=== PATIENT | female | born 1980 | race Caucasian/White ===

== ENCOUNTER 2017-04-10 11:10 | Emergency (ER) | payer OTHER ==
[~2017-04-10] VITALS: Ht 147.3 cm; Wt 55.0 kg
[~2017-04-10 11:10] MED LIST: PREN1CAP7 PO; ZOFR4TAB3 SL
[2017-04-10 11:12] VITALS: BP 134/84; PULSE 104; RESP 16; TEMP 98; O2SAT 100
[2017-04-10] MEDS ORDERED: ASPI81CH CHEW (11:44)
[2017-04-10] MEDS ORDERED: TUMS500C CHEW (11:44)
--- NOTE | 2017-04-10 11:48 | PD ---
HPI Chief Complaint: Hypertension Time Seen by Provider: 11:32 Travel History International Travel<30 days: No Contact w/Intl Traveler<30days: No Traveled to known affect area: No History of Present Illness HPI 36-year-old female here with complaint of possible hypertension. Patient is approximately 12 weeks based on first trimester ultrasound showing twin gestational . States that she had a history of preeclampsia with previous requiring induction at 36 weeks. Patient stated that she had some visual aura today with slight dancing lights within her vision. This was not associated with any headache. The vision resolved, and she has been seen normally without any difficulty since. The oral lasted for 2-3 minutes. During which time patient became anxious and checked her blood pressure at home and it was in the 140 systolic range prompting ER visit. She does not have history of hypertension outside of . She is been seeming by women's care now once, but has not yet seen an [facility] physician. PFSH Past Medical History Cardiovascular Problems: Yes (HTN DURING ) Diabetes: Yes (GESTATIONAL DIABETES) ?: LMP: 01/15/2017 Social History Tobacco Use: No Allergies-Medications (Allergen,Severity, Reaction): Coded Allergies: No Known Allergies (Unverified , 04/10/17) Reported Meds & Prescriptions Reported Meds & Active Scripts Active Zofran Odt (Ondansetron Odt) 4 Mg Tab 4 Mg SL Q8HR PRN Citranatal [place] ( W/O Vit A W/ Fe Fumar) 27-1-260 Mg Cap 1 Cap PO DAILY Reported Tums (Calcium Carbonate (Antacid)) 500 Mg Chew 500 Mg CHEW QID PRN Aspirin 81 Mg Chew 81 Mg CHEW DAILY Review of Systems Except as stated in HPI: all other systems reviewed are Neg Physical Exam Narrative GENERAL: Well-appearing female in no acute distress SKIN: Focused skin assessment warm/dry. HEAD: Atraumatic. Normocephalic. EYES: Pupils equal and round. No scleral icterus. No injection or drainage. ENT: No nasal bleeding or discharge. Mucous membranes pink and moist. NECK: Supple CARDIOVASCULAR: Regular rate and rhythm. RESPIRATORY: No accessory muscle use. GASTROINTESTINAL: Abdomen soft, non-tender, nondistended. MUSCULOSKELETAL: No obvious deformities. No edema. NEUROLOGICAL: Awake and alert. Motor grossly within normal limits. Normal speech. PSYCHIATRIC: Anxious Data Data Last Documented VS Vital Signs Date Time Temp Pulse Resp B/P Pulse Ox O2 Delivery O2 Flow Rate FiO2 04/10/17 11:12 98.0 104 16 134/84 100 MDM Medical Decision Making Medical Screen Exam Complete: Yes Emergency Medical Condition: Yes Medical Record Reviewed: Yes Differential Diagnosis 36-year-old female approximate 12 weeks here with complaint of 2-3 minutes of visual changes. Patient has had preeclampsia with previous pregnancies, but is certainly early for this despite her twin gestation. No doubt she is at high risk for preeclampsia and eclampsia given her history and should probably be followed by maternal medicine. She is asymptomatic at this time and her symptoms were not associated with any headache and I do not think any workup is warranted in the ER. Narrative Course Patient was referred to [facility] that she may have a referral from them to [facility] Diagnosis Primary Impression: , high-risk Qualified Code: O09.91 - , high-risk, first trimester Additional Impression: Visual changes Referrals: [facility] call for appointment Additional Instructions: Call [facility] for follow-up appointment. Med/Other Pt SpecificInfo: No Change to Meds Disposition: 01 DISCHARGE HOME Condition: Stable Dulce Chacon MD April 10, 2017 11:48
[2017-04-10 12:10] VITALS: BP 120/90; PULSE 80; RESP 18; O2SAT 98
[2017-04-18] MEDS ORDERED: ZOFR4TAB3 SL (14:30)
[2017-04-18] MEDS ORDERED: PREN1CAP7 PO (14:30)
== END 2017-04-10 12:10 | disposition home or self-care (01) ==
LOC: NEPD 11:10
DX: O09.91 Supervision of high risk pregnancy, unspecified, first trimester (principal); O99.89 Other specified diseases and conditions complicating pregnancy, childbirth and the puerperium; I10 Essential (primary) hypertension; H53.9 Unspecified visual disturbance
CPT/HCPCS: 99281

== ENCOUNTER → 2017-05-23 | Outpatient (CLI) | payer MEDICAID, OTHER ==
[~2017-05-23] MED LIST changes: +ASPI81CH CHEW; +TUMS500C CHEW; -ZOFR4TAB3 SL
== END ==
LOC: HPND 09:04 → EDUNIT# 10:15
PROVIDERS: ATTEND Obstetrics & Gynecology
DX: O09.522 Supervision of elderly multigravida, second trimester (principal); O30.032 Twin pregnancy, monochorionic/diamniotic, second trimester; Z3A.18 18 weeks gestation of pregnancy
CPT/HCPCS: 76811; 76812; 76817

== ENCOUNTER → 2017-06-06 | Outpatient (CLI) | payer MEDICAID ==
[~2017-06-06] MED LIST changes: +NITR1CAP36 PO; +PREN1CHW7 PO
== END ==
LOC: HPND 08:31
PROVIDERS: ATTEND Obstetrics & Gynecology
DX: O09.522 Supervision of elderly multigravida, second trimester (principal); O30.032 Twin pregnancy, monochorionic/diamniotic, second trimester; O35.1XX0 Maternal care for (suspected) chromosomal abnormality in fetus, not applicable or unspecified; O35.8XX0 Maternal care for other (suspected) fetal abnormality and damage, not applicable or unspecified
CPT/HCPCS: 76815; 76817

== ENCOUNTER 2017-08-02 12:10 | Observation (INO) | payer MEDICAID ==
[~2017-08-02 12:10] MED LIST changes: -NITR1CAP36 PO
[2017-08-02 13:32] LABS: AUTOMATED NEUTROPHIL # 11.2 TH/MM3 (1.8-7.7); BASOPHIL % 0.3 % (0.0-2.0); EOSINOPHIL # 0.2 TH/MM3 (0-0.4); EOSINOPHIL % 1.3 % (0.0-4.0); HEMATOCRIT 24.1 % (35.0-46.0); HEMO FLAGS DIFF FINAL; LYMPH % 15.8 % (9.0-44.0); LYMPHOCYTE # 2.3 TH/MM3 (1.0-4.8); MEAN CELL VOLUME 92.9 FL (80.0-100.0); MEAN CORPUSCULAR HEMOGLOBIN 32.5 PG (27.0-34.0); MONO % 7.1 % (0.0-8.0); NEUT % 75.5 % (16.0-70.0); PLATELET COUNT 316 TH/MM3 (150-450); RED BLOOD COUNT 2.59 MIL/MM3 (4.00-5.30); RED CELL DISTRIBUTION WIDTH 13.5 % (11.6-17.2); WHITE BLOOD COUNT 14.8 TH/MM3 (4.0-11.0)
[2017-08-02 13:57] LABS: ALT (GPT) 11 U/L (10-53); ANION GAP 9 MEQ/L (5-15); AST (GOT) 12 U/L (15-37); BICARBONATE 24.7 MEQ/L (21.0-32.0); BLOOD UREA NITROGEN 7 MG/DL (7-18); CHLORIDE 105 MEQ/L (98-107); GLOMERULAR FILTRATION RATE 226 ML/MIN (>89); POTASSIUM 3.3 MEQ/L (3.5-5.1); SODIUM (NA) 139 MEQ/L (136-145)
[2017-08-02 14:01] LABS: ALKALINE PHOSPHATASE 67 U/L (45-117); TOTAL BILIRUBIN ADULT 0.2 MG/DL (0.2-1.0); URIC ACID 4.3 MG/DL (2.6-6.0)
[2017-08-02 14:15] VITALS: BP 156/92; PULSE 104
[2017-08-02] MEDS ORDERED: SODIUM CHLORIDE 0.9% FLUSH 10 ML FLUSH IV FLUSH PRN (14:15)
[2017-08-02] MEDS ORDERED: ONDANSETRON ODT 4 MG TAB PO PRN (14:15)
--- NOTE | 2017-08-02 14:23 | PD ---
HPI Chief Complaint elevated BP Date Seen: Aug 02, 2017 Time Seen: 14:00 Travel History International Travel<30 Days: No Contact w/Intl Traveler<30Days: No History of Present Illness HPI 37 yo at 28/4 weeks gestation (twin ) presented to OB triage for elevated BP from OB diagnostics. BPP for twins done at OB diagnostic were 10/10 , CL= 52mm Pt stated elevated BP began 1 week ago. Pt endorses movements. Denies LOF, vaginal bleeding, and contractions. Pt also stated she had ARCE intermittently,none currently. Denies CP or SOB. Weeks Gestation: 28 Para: 2 : 3 History Past Medical History Medical History: Denies Significant Hx Obstetric History Obstetric History at 28/4 with twin . Prior pregnancies were . -First induced at 38 due to "old placenta", as per pt -Second induced at 36 wk due to increased BP. Pt stated she was placed on BP medication during that and eventually was induced because the medication were not controlling her BPs. Past Surgical History Surgical History: No Previous Surgery Family History Narrative Family History mother--with high BP Brother- heart attack at age 40 Social History Alcohol Use: No Tobacco Use: No Substance Abuse: No Allergies-Medications (Allergen,Severity, Reaction): Coded Allergies: No Known Allergies (Unverified , 07/26/17) Home Meds Active Scripts Vit W/ Ferric Phospha (Vitafol Gummies 3.33-0.333-34.8 mg) 1 Chw Chw, 3 TAB PO DAILY, #90 BOTTLE 11 Refills Prov:Georgia Charles 06/13/17 W/O Vit A W/ Fe Fumar (Citranatal [place]) 27-1-260 Mg Cap, 1 CAP PO DAILY for Nutritional Supplement, #30 CAP 11 Refills Prov:Georgia Charles 04/18/17 Reported Medications Calcium Carbonate (Antacid) (Tums) 500 Mg Chew, 500 MG CHEW QID Y for HEARTBURN , TAB 0 Refills 04/10/17 Aspirin (Aspirin) 81 Mg Chew, 81 MG CHEW DAILY, TAB 0 Refills 04/10/17 Review of Systems Except as stated in HPI: all other systems reviewed are Neg Physical Exam Narrative GENERAL: Well-nourished, well-developed patient. SKIN: Warm and dry. HEAD: Normocephalic and atraumatic. EYES: No scleral icterus. No injection or drainage. ENT: No nasal drainage noted. Mucous membranes pink. Airway patent. NECK: Supple, trachea midline. No JVD. CARDIOVASCULAR: Regular rate and rhythm without murmurs, gallops, or rubs. RESPIRATORY: Breath sounds equal bilaterally. No accessory muscle use. BREASTS: Bilateral exam showed no masses , no retractions, no nipple discharge. ABDOMEN/GI: Abdomen soft, non-tender, bowel sounds present, no rebound, no guarding Gravid to 28/4 weeks size Uterine Contractions: minimal only 1-2 contractions detected on monitor FHT's: Category: 1 Baseline:140 Reactive: positive Variability: moderate Decels: none EXTREMITIES: No cyanosis or edema. BACK: Nontender without obvious deformity. NEUROLOGICAL: Awake and alert. Motor and sensory grossly within normal limits. Five out of 5 muscle strength in all muscle groups. Normal speech. Data Data Vital Signs Reviewed: Yes Orders Orders Complete Blood Count With Diff (08/02/17 13:00) Comprehensive Metabolic Panel (08/02/17 13:00) Uric Acid (08/02/17 13:00) Place In Observation (08/02/17 ) Diet Regular Basic (08/02/17 Dinner) Vital Signs (Adult) [id number] AWAKE (08/02/17 14:15) Heart (08/02/17 14:15) Activity Bed Rest With Brp (08/02/17 14:15) Plkeopzh-Mlj-Cgcuj-Iron Prenat (Stuartna (08/03/17 09:00) Sodium Chloride 0.9% Flush (Ns Flush) (08/02/17 21:00) Sodium Chloride 0.9% Flush (Ns Flush) (08/02/17 14:15) Ondansetron Odt (Zofran Odt) (08/02/17 14:15) Labs Laboratory Tests Test 08/02/17 13:10 White Blood Count 14.8 Red Blood Count 2.59 Hemoglobin 8.4 Hematocrit 24.1 Mean Corpuscular Volume 92.9 Mean Corpuscular Hemoglobin 32.5 Mean Corpuscular Hemoglobin Concent 35.0 Red Cell Distribution Width 13.5 Platelet Count 316 Mean Platelet Volume 8.2 Neutrophils (%) (Auto) 75.5 Lymphocytes (%) (Auto) 15.8 Monocytes (%) (Auto) 7.1 Eosinophils (%) (Auto) 1.3 Basophils (%) (Auto) 0.3 Neutrophils # (Auto) 11.2 Lymphocytes # (Auto) 2.3 Monocytes # (Auto) 1.0 Eosinophils # (Auto) 0.2 Basophils # (Auto) 0.0 CBC Comment DIFF FINAL Differential Comment Blood Urea Nitrogen 7 Creatinine 0.33 Random Glucose 83 Total Protein 6.6 Albumin 2.3 Calcium Level 9.2 Uric Acid 4.3 Alkaline Phosphatase 67 Aspartate Amino Transf (AST/SGOT) 12 Alanine Aminotransferase (ALT/SGPT) 11 Total Bilirubin 0.2 Sodium Level 139 Potassium Level 3.3 Chloride Level 105 Carbon Dioxide Level 24.7 Anion Gap 9 Estimat Glomerular Filtration Rate 226 MDM Medical Record Reviewed: Yes Plan 37 yo at 28/4 weeks gestation with twin presented to OB triage from OB diagnostics due to elevated BPs. 1. IUP (twins) at 28/4 -continue with routine OB care -encourage oral hydration -normal transvaginal u/s done by Ob diagnostics today - Twins with 2VC--twin A suspected VSD, IUGR (07/18/17), twin B IUGR (07/18/17) 2. induced hypertension -Pt with elevated BPs, latest BP 156/92 -Urine dip stick found to have trace protein -CBC, CMP and uric acid labs WNL -Pt informed that admission to monitor BP and FHT and to obtain 24 urine protein is recommended. However, pt decided to leave AMA because she stated she has other children at home and other responsibilities. Pt informed of risk associated with leaving AMA. liboriow Dr. Valerio Diagnosis Diagnosis: Primary Impression: 28 weeks gestation of Additional Impression: induced hypertension Disposition: 07 AGAINST MEDICAL ADVICE Condition: Critical Richard Knox MD R1 Aug 02, 2017 14:23
[2017-08-02 14:30] VITALS: BP 159/98; PULSE 103
[2017-08-02] MEDS ORDERED: hydrALAZINE HCL 20 MG/ML VIAL IV PUSH PRN (14:30)
--- NOTE | 2017-08-02 14:51 | PD ---
History of Present Illness Date Seen: Aug 02, 2017 Time Seen: 14:30 History of Present Illness Patient is a 37-year-old white female with twin gestation at 28 weeks who was followed in the [facility] women clinic. She is following the high risk protocol by being seen by medicine on a routine basis. She had a level II ultrasound done today. On that ultrasound one baby has likely VSD, the other baby is growth restricted somewhat but both baby's 10 of 10 biophysical profiles normal ultrasound of the umbilical cord with normal end- diastolic flow. She has a history of -induced hypertension with her last . No history of hypertension prior to that and no hypertension between pregnancies. Her records with this showed no blood pressure issues until last week when she had 147/89 today and OB ultrasound here on OB ED blood pressure 150/90 persistently, shows trace protein in her urine, PIH lab within normal limits, patient also has history of gestational diabetes and her blood sugars 83 today., She denies any complaints or problems pains or other issues of both babies are active. heart rate tracings are reactive for both babies and no contractions seen on regular basis Impression--28 week twins with -induced hypertension [once again], ultrasound findings of obstetric issues with both, babies 1 with a VSD the other with some growth restriction Plan - we've recommended the patient that she be admitted the hospital for 24- hour urine collection for total protein, continued blood pressure monitoring, monitoring, patient that this time was not prepared for that information and does not want to stay she has to much to do too many babies to take care of and arrange for babysitting. We stressed the importance of watching her blood pressure and monitoring in the hospital but she is signing out AGAINST MEDICAL ADVICE. She may return tomorrow or the day after to coming to the hospital when she's arranged all her issues socially and to come in and get the 24-hour urine done. Andrzej Valerio II, MD Aug 02, 2017 14:51
[2017-08-02] MEDS ORDERED: SODIUM CHLORIDE 0.9% FLUSH 10 ML FLUSH IV FLUSH SCH (21:00)
[2017-08-03] MEDS ORDERED: MULTIVIT/MIN/PREN/FOL AC/IRON PRENATAL TAB PO SCH (09:00)
== END 2017-08-02 15:00 | disposition left against medical advice (07) ==
LOC: HOBED 12:10 → H2EA 14:29
PROVIDERS: ADMIT Obstetrics & Gynecology Maternal & Fetal Medicine; ATTEND Obstetrics & Gynecology Maternal & Fetal Medicine
DX: O13.4 Gestational [pregnancy-induced] hypertension without significant proteinuria, complicating childbirth (principal); O30.003 Twin pregnancy, unspecified number of placenta and unspecified number of amniotic sacs, third trimester; O09.523 Supervision of elderly multigravida, third trimester; Z3A.28 28 weeks gestation of pregnancy
CPT/HCPCS: 36415; 80053; 84550; 85025; 99285; G0378

== ENCOUNTER 2017-08-03 02:30 | Inpatient (IN) | payer MEDICAID ==
[~2017-08-03] VITALS: Ht 147.3 cm; Wt 67.0 kg
[2017-08-03] VITALS (15 sets, daily range): BP systolic 147–161; BP diastolic 87–98; PULSE 100–109; RESP 18; TEMP 97.8–98.6
[2017-08-03 04:04] LABS: AUTOMATED NEUTROPHIL # 8.9 TH/MM3 (1.8-7.7); BASOPHIL # 0.1 TH/MM3 (0-0.2); BASOPHIL % 0.5 % (0.0-2.0); EOSINOPHIL # 0.2 TH/MM3 (0-0.4); EOSINOPHIL % 1.7 % (0.0-4.0); HEMATOCRIT 22.5 % (35.0-46.0); HEMO FLAGS DIFF FINAL; LYMPHOCYTE # 2.2 TH/MM3 (1.0-4.8); MEAN CELL VOLUME 92.6 FL (80.0-100.0); MEAN CORPUSCULAR HEMOGLOBIN 32.3 PG (27.0-34.0); MEAN CORPUSCULAR HGB CONC 34.8 % (32.0-36.0); MONO % 7.3 % (0.0-8.0); NEUT % 72.5 % (16.0-70.0); PLATELET COUNT 311 TH/MM3 (150-450); RED BLOOD COUNT 2.43 MIL/MM3 (4.00-5.30); RED CELL DISTRIBUTION WIDTH 13.7 % (11.6-17.2); WHITE BLOOD COUNT 12.3 TH/MM3 (4.0-11.0)
[2017-08-03 04:26] LABS: BACTERIA, URINE MANY /hpf; BLOOD, URINE NEG (NEG); GLUCOSE,URINE NEG (NEG); HYALINE CAST, URINE 1 /lpf (RARE); KETONE, URINE NEG (NEG); NITRITE,URINE NEG (NEG); PH, URINE 6.5 (5.0-8.5); SQUAMOUS EPITHELIAL CELL URINE 2 /hpf (0-5); URINE COLOR LIGHT-YELLOW (YELLW/STRAW)
[2017-08-03 04:37] LABS: COMMENT (UR) CULTURE INDICATED; CULTURE IF INDICATED CULTURE INDICATED
[2017-08-03 04:42] LABS: ANION GAP 7 MEQ/L (5-15); AST (GOT) 14 U/L (15-37); BICARBONATE 26.2 MEQ/L (21.0-32.0); BLOOD UREA NITROGEN 6 MG/DL (7-18); CHLORIDE 104 MEQ/L (98-107); GLOMERULAR FILTRATION RATE 252 ML/MIN (>89); SODIUM (NA) 137 MEQ/L (136-145)
[2017-08-03 04:44] LABS: URIC ACID 4.5 MG/DL (2.6-6.0)
[2017-08-03 04:47] LABS: ALKALINE PHOSPHATASE 61 U/L (45-117); ALT (GPT) 12 U/L (10-53); TOTAL BILIRUBIN ADULT 0.1 MG/DL (0.2-1.0)
[2017-08-03] MEDS ORDERED: SODIUM CHLORIDE FLUSH PRN IV FLUSH (05:15)
[2017-08-03] MEDS ORDERED: MAGNESIUM HYDROXIDE SUSP 30 ML CUP PO PRN (05:30)
[2017-08-03] MEDS ORDERED: ALUMINUM/MAGNESIUM/SIMETH 30 ML CUP PO PRN (05:30)
--- NOTE | 2017-08-03 07:16 | HHI.HP ---
History & Physical H&P OB ED Note (Detail) Patient Name: Sayra Fonseca Unit Number: [id number] Date of : 1980 Patient Status: Discharged Inpatient (obs) Attending Doctor: Andrzej Valerio II, MD HPI HPI Chief Complaint elevated BP Date Seen: Aug 02, 2017 Time Seen: 14:00 Travel History International Travel<30 Days: No Contact w/Intl Traveler<30Days: No History of Present Illness HPI 37 yo at 28/4 weeks gestation (twin ) presented to OB triage for elevated BP from OB diagnostics. BPP for twins done at OB diagnostic were / , CL= 52mm Pt stated elevated BP began 1 week ago. Pt endorses movements. Denies LOF, vaginal bleeding, and contractions. Pt also stated she had ARCE intermittently,none currently. Denies CP or SOB. Weeks Gestation: 28 Para: 2 : 3 History (Limited) History Past Medical History Medical History: Denies Significant Hx Obstetric History Obstetric History at 28/4 with twin . Prior pregnancies were . -First induced at 38 due to "old placenta", as per pt -Second induced at 36 wk due to increased BP. Pt stated she was placed on BP medication during that and eventually was induced because the medication were not controlling her BPs. Past Surgical History Surgical History: No Previous Surgery Family History Narrative Family History mother--with high BP Brother- heart attack at age 40 Social History Alcohol Use: No Tobacco Use: No Substance Abuse: No Allergies-Medications Allergies-Medications (Allergen,Severity, Reaction): Coded Allergies: No Known Allergies (Unverified , 07/26/17) Home Meds Active Scripts Vit W/ Ferric Phospha (Vitafol Gummies 3.33-0.333-34.8 mg) 1 Chw Chw, 3 TAB PO DAILY, #90 BOTTLE 11 Refills Prov:Georgia Charles 06/13/17 W/O Vit A W/ Fe Fumar (Citranatal [place]) 27-1-260 Mg Cap, 1 CAP PO DAILY for Nutritional Supplement, #30 CAP 11 Refills Prov:Georgia Charles 04/18/17 Reported Medications Calcium Carbonate (Antacid) (Tums) 500 Mg Chew, 500 MG CHEW QID Y for HEARTBURN , TAB 0 Refills 04/10/17 Aspirin (Aspirin) 81 Mg Chew, 81 MG CHEW DAILY, TAB 0 Refills 04/10/17 ROS Review of Systems Except as stated in HPI: all other systems reviewed are Neg Physical Exam Physical Exam Narrative GENERAL: Well-nourished, well-developed patient. SKIN: Warm and dry. HEAD: Normocephalic and atraumatic. EYES: No scleral icterus. No injection or drainage. ENT: No nasal drainage noted. Mucous membranes pink. Airway patent. NECK: Supple, trachea midline. No JVD. CARDIOVASCULAR: Regular rate and rhythm without murmurs, gallops, or rubs. RESPIRATORY: Breath sounds equal bilaterally. No accessory muscle use. BREASTS: Bilateral exam showed no masses , no retractions, no nipple discharge. ABDOMEN/GI: Abdomen soft, non-tender, bowel sounds present, no rebound, no guarding Gravid to 28/4 weeks size Uterine Contractions: minimal only 1-2 contractions detected on monitor FHT's: Category: 1 Baseline:140 Reactive: positive Variability: moderate Decels: none EXTREMITIES: No cyanosis or edema. BACK: Nontender without obvious deformity. NEUROLOGICAL: Awake and alert. Motor and sensory grossly within normal limits. Five out of 5 muscle strength in all muscle groups. Normal speech. Data Data Data Vital Signs Reviewed: Yes Orders Orders Complete Blood Count With Diff (08/02/17 13:00) Comprehensive Metabolic Panel (08/02/17 13:00) Uric Acid (08/02/17 13:00) Place In Observation (08/02/17 ) Diet Regular Basic (08/02/17 Dinner) Vital Signs (Adult) JEANETH.[id number] AWAKE (08/02/17 14:15) Heart (08/02/17 14:15) Activity Bed Rest With Brp (08/02/17 14:15) Uumpbjet-Cul-Gkfdq-Iron Prenat ([place] (08/03/17 09:00) Sodium Chloride 0.9% Flush (Ns Flush) (08/02/17 21:00) Sodium Chloride 0.9% Flush (Ns Flush) (08/02/17 14:15) Ondansetron Odt (Zofran Odt) (08/02/17 14:15) Labs Laboratory Tests Test 08/02/17 13:10 White Blood Count 14.8 Red Blood Count 2.59 Hemoglobin 8.4 Hematocrit 24.1 Mean Corpuscular Volume 92.9 Mean Corpuscular Hemoglobin 32.5 Mean Corpuscular Hemoglobin Concent 35.0 Red Cell Distribution Width 13.5 Platelet Count 316 Mean Platelet Volume 8.2 Neutrophils (%) (Auto) 75.5 Lymphocytes (%) (Auto) 15.8 Monocytes (%) (Auto) 7.1 Eosinophils (%) (Auto) 1.3 Basophils (%) (Auto) 0.3 Neutrophils # (Auto) 11.2 Lymphocytes # (Auto) 2.3 Monocytes # (Auto) 1.0 Eosinophils # (Auto) 0.2 Basophils # (Auto) 0.0 CBC Comment DIFF FINAL Differential Comment Blood Urea Nitrogen 7 Creatinine 0.33 Random Glucose 83 Total Protein 6.6 Albumin 2.3 Calcium Level 9.2 Uric Acid 4.3 Alkaline Phosphatase 67 Aspartate Amino Transf (AST/SGOT) 12 Alanine Aminotransferase (ALT/SGPT) 11 Total Bilirubin 0.2 Sodium Level 139 Potassium Level 3.3 Chloride Level 105 Carbon Dioxide Level 24.7 Anion Gap 9 Estimat Glomerular Filtration Rate 226 MDM MDM Medical Record Reviewed: Yes Plan 37 yo at 28/4 weeks gestation with twin presented to OB triage from OB diagnostics due to elevated BPs. 1. IUP (twins) at 28/4 -continue with highballer care -encourage oral hydration -normal transvaginal u/s done by Ob diagnostics today - Twins with 2VC--twin A suspected VSD, IUGR (07/18/17), twin B IUGR (07/18/17) 2. induced hypertension -Pt with elevated BPs, latest BP 156/92 -Urine dip stick found to have trace protein -CBC, CMP and uric acid labs WNL sdw Dr. Valerio Diagnosis Diagnosis: Primary Impression: 28 weeks gestation of Additional Impression: induced hypertension Disposition: ADMIT Condition: Critical MD Teodoro Lloyd Bill L. II MD Aug 03, 2017 07:16
[2017-08-03] MEDS: SODIUM CHLORIDE FLUSH BID IV FLUSH SCH ×2 (10:19→21:00)
[2017-08-03] MEDS ORDERED: BETAMETHASONE SOD PHOS/ACETATE SUSP 30 MG/5 ML VIAL IM ONE (13:00)
--- NOTE | 2017-08-03 17:01 | PD.OB.ANTE ---
Subjective Interval History Pt comfortable. Tolerating PO. Ambulating to bathroom. Denies headaches or vision changes. Active movements x 2 BP 150s/90s Objective Vital Signs DTRs at patella, 1+, no ankle clonus. Vital Signs Date Time Temp Pulse Resp B/P (MAP) Pulse Ox O2 Delivery O2 Flow Rate FiO2 08/03/17 08:16 107 147/87 (107) 08/03/17 08:16 98.6 18 08/03/17 08:15 107 08/03/17 06:21 100 149/90 (109) 08/03/17 06:19 109 161/98 (119) 08/03/17 06:18 18 08/03/17 06:16 98.3 08/03/17 04:40 100 08/03/17 04:31 156/92 (113) 08/03/17 04:26 18 08/03/17 04:25 97.8 08/03/17 04:25 104 08/03/17 04:16 161/97 (118) 08/03/17 04:10 108 08/03/17 04:05 103 08/03/17 04:04 102 147/87 (107) 08/03/17 04:00 101 Lab & Micro Results Test 08/03/17 03:35 White Blood Count 12.3 TH/MM3 Red Blood Count 2.43 MIL/MM3 Hemoglobin 7.8 GM/DL Hematocrit 22.5 % Mean Corpuscular Volume 92.6 FL Mean Corpuscular Hemoglobin 32.3 PG Mean Corpuscular Hemoglobin Concent 34.8 % Red Cell Distribution Width 13.7 % Platelet Count 311 TH/MM3 Mean Platelet Volume 7.9 FL Neutrophils (%) (Auto) 72.5 % Lymphocytes (%) (Auto) 18.0 % Monocytes (%) (Auto) 7.3 % Eosinophils (%) (Auto) 1.7 % Basophils (%) (Auto) 0.5 % Neutrophils # (Auto) 8.9 TH/MM3 Lymphocytes # (Auto) 2.2 TH/MM3 Monocytes # (Auto) 0.9 TH/MM3 Eosinophils # (Auto) 0.2 TH/MM3 Basophils # (Auto) 0.1 TH/MM3 CBC Comment DIFF FINAL Differential Comment Urine Color LIGHT-YELLOW Urine Turbidity CLEAR Urine pH 6.5 Urine Specific [place] 1.005 Urine Protein NEG mg/dL Urine Glucose (UA) NEG mg/dL Urine Ketones NEG mg/dL Urine Occult Blood NEG Urine Nitrite NEG Urine Bilirubin NEG Urine Urobilinogen LESS THAN 2.0 MG/DL Urine Leukocyte Esterase TRACE Urine RBC 3 /hpf Urine WBC 3 /hpf Urine Squamous Epithelial Cells 2 /hpf Urine Amorphous Sediment RARE Urine Bacteria MANY /hpf Urine Hyaline Casts 1 /lpf Microscopic Urinalysis Comment CULTURE INDICATED Blood Urea Nitrogen 6 MG/DL Creatinine 0.30 MG/DL Random Glucose 85 MG/DL Total Protein 5.8 GM/DL Albumin 2.1 GM/DL Calcium Level 8.8 MG/DL Uric Acid 4.5 MG/DL Alkaline Phosphatase 61 U/L Aspartate Amino Transf (AST/SGOT) 14 U/L Alanine Aminotransferase (ALT/SGPT) 12 U/L Total Bilirubin 0.1 MG/DL Sodium Level 137 MEQ/L Potassium Level 3.0 MEQ/L Chloride Level 104 MEQ/L Carbon Dioxide Level 26.2 MEQ/L Anion Gap 7 MEQ/L Estimat Glomerular Filtration Rate 252 ML/MIN Date/Time Source Procedure Growth Status 08/03/17 03:35 Urine Clean Catch Urine Culture Pending Received Physical Exam GENERAL: Well-nourished, well-developed patient. CARDIOVASCULAR: Regular rate and rhythm without murmurs, gallops, or rubs. RESPIRATORY: Breath sounds equal bilaterally. No accessory muscle use. ABDOMEN/GI: Abdomen soft, non-tender. Fundus: [-] GENITOURINARY: External Genitalia: intact and normal in appearance Cervix: [-] Dilatation: [-] Effacement: [-] Station: [-] Presentation: [-] Membranes: [-] Uterine Contractions: [-] FHT's: Category: [1 x2] Baseline: [-] Reactive: [-] Variability: [-] Decels: [-] EXTREMITIES: No cyanosis or edema, non-tender, without signs of DVT. Assessment and Plan Assessment and Plan 28 week + twins. PIH Twin A with VSD, 2VC, Twin B with IUGR. Normal testing Admitted for 24 hour urine collection for total protein and creatinine clearance Plan for steroids for lung maturity. Repeat [facility] labs in Temo Caruso MD Aug 03, 2017 17:01
[2017-08-03] MEDS: ACETAMINOPHEN 325 MG TAB PO PRN (20:00)
[2017-08-04] VITALS (105 sets, daily range): BP systolic 141–165; BP diastolic 79–115; PULSE 108–129; RESP 8–28; TEMP 97.6–98.3; O2SAT 98–99
[2017-08-04 03:27] LABS: URINE TOTAL PROTEIN TIMED 12.9 MG/DL
[2017-08-04 03:32] LABS: CREAT 24 TIMED 25.4 MG/DL
[2017-08-04] MEDS: ACETAMINOPHEN 325 MG TAB PO PRN (07:30)
--- NOTE | 2017-08-04 08:19 | PD.OB.ANTE ---
Subjective Interval History Pt is doing and denies any symptoms. Occasional headache relieved with Tylenol. No abdominal pain, no vision disturbances. Reports active movements. Denies contractions, Pt is a 37 yo at 28 weeks and 6 days. Pt has mono-di twins Twin A with VSD, 2VC and IUGR less than 10th centile Twin B with IUGR less than 10th centile. Last EFW was done 07-18-2017 Plan was to rescan in 3 weeks, Pt has testing with Dopplers/BPP twice a week after 28 weeks. Pt was seen at Diagnostics on 08/01/2017 and had normal Dopplers / BPP However she was noted to have elevated BP. Pt was admitted for PIH evaluation and 24 hour urine collection was initiated. Objective Vital Signs Vital Signs Date Time Temp Pulse Resp B/P (MAP) Pulse Ox O2 Delivery O2 Flow Rate FiO2 08/03/17 08:16 107 147/87 (107) 08/03/17 08:16 98.6 18 08/03/17 08:15 107 Lab & Micro Results Test 08/04/17 03:00 Urine Total Volume 24 Hours 2825 ML Urine Creatinine 24 Hour 0.72 GM/24HR Urine Total Protein 24 Hour 364 MG/24HR Date/Time Source Procedure Growth Status 08/03/17 03:35 Urine Clean Catch Urine Culture Pending Received Physical Exam GENERAL: Well-nourished, well-developed patient. CARDIOVASCULAR: Regular rate and rhythm without murmurs, gallops, or rubs. RESPIRATORY: Breath sounds equal bilaterally. No accessory muscle use. ABDOMEN/GI: Abdomen soft, non-tender. Fundus: [-] GENITOURINARY: External Genitalia: intact and normal in appearance Uterine Contractions: [none] FHT's: Category: [1 x 2] Baseline: [130/135] Reactive: [-] Variability: [moderate x 2] Decels: [none] EXTREMITIES: No cyanosis or edema, non-tender, without signs of DVT. Normal DTRs at patella, no clonus. Assessment and Plan Problem List: (1) , high-risk ICD Codes: O09.90 - Supervision of high risk , unspecified, unspecified trimester Status: Acute Assessment and Plan 28 weeks and 6 days mono/di twins. Twin A with VSD, 2VC, and IUGR , Twin B with IUGR. 1. PRE-ECLAMPSIA Normal testing on 08/01/2017 Pt was noted to have elevated BP at OB diagnostics 08-01-2017 Admitted for 24 hour urine collection for total protein and creatinine clearance 24 hour urine protein is 364mg 08-04-2017 PI labs wnl. Pt is asymptomatic. FHR Cat 1 x 2 BP 140-150/80-90s Pt received 1st dose Betamethasone 08-03-2017 at 15:00 second due today D/W MFM Dr Boyle, ideally would like patient kept until OB Diagnostics on Sunday08-06-2017. Pt wants desperately to go home. Agrees to stay for second steroid, and blood transfusion. 2. ANEMIA Hg is 7.8g/dL Transfuse 2 units PRBC 3. hypokalemia, K is 3 PO replacement Temo Thompson MD Aug 04, 2017 08:19
[2017-08-04] MEDS: SODIUM CHLORIDE FLUSH BID IV FLUSH SCH ×2 (09:00→20:30)
[2017-08-04] MEDS: POTASSIUM CHLORIDE 10 MEQ CAP PO SCH ×2 (09:00→21:52)
[2017-08-04] MEDS ORDERED: POTASSIUM CHLORIDE 10 MEQ CONTROLLED RELEASE TAB PO ONE (10:00)
[2017-08-04] MEDS ORDERED: MAGNESIUM SULFATE 4 GM PREMIX 100 ML IV ONE (10:30)
[2017-08-04 10:52] LABS: HEMATOCRIT 23.8 % (35.0-46.0); MEAN CELL VOLUME 93.3 FL (80.0-100.0); MEAN CORPUSCULAR HEMOGLOBIN 32.5 PG (27.0-34.0); MEAN CORPUSCULAR HGB CONC 34.9 % (32.0-36.0); PLATELET COUNT 317 TH/MM3 (150-450); RED BLOOD COUNT 2.55 MIL/MM3 (4.00-5.30); RED CELL DISTRIBUTION WIDTH 13.7 % (11.6-17.2); REVIEW FLAG FINAL; WHITE BLOOD COUNT 13.9 TH/MM3 (4.0-11.0)
[2017-08-04] MEDS ORDERED: ACETAMINOPHEN 325 MG TAB PO PRN (11:15)
[2017-08-04] MEDS ORDERED: diphenhydrAMINE HCL 25 MG CAP PO PRN (11:15)
[2017-08-04] MEDS ORDERED: SODIUM CHLOR 0.9% 250 ML INJ 250 ML IV ONE (11:15)
[2017-08-04 11:35] LABS: ALKALINE PHOSPHATASE 70 U/L (45-117); ALT (GPT) 15 U/L (10-53); ANION GAP 12 MEQ/L (5-15); AST (GOT) 17 U/L (15-37); BICARBONATE 23.4 MEQ/L (21.0-32.0); BLOOD UREA NITROGEN 6 MG/DL (7-18); CHLORIDE 102 MEQ/L (98-107); GLOMERULAR FILTRATION RATE 136 ML/MIN (>89); SODIUM (NA) 137 MEQ/L (136-145); TOTAL BILIRUBIN ADULT 0.2 MG/DL (0.2-1.0)
[2017-08-04 11:41] LABS: POTASSIUM 2.7 MEQ/L (3.5-5.1)
[2017-08-04] MEDS: MAGNESIUM SULFATE 40 GM PREMIX 1,000 ML IV SCH (11:45)
[2017-08-04] MEDS ORDERED: BETAMETHASONE SOD PHOS/ACETATE SUSP 30 MG/5 ML VIAL IM ONE (13:00)
[2017-08-04] MEDS: hydrALAZINE HCL 20 MG/ML VIAL IV PRN ×3 (14:37→18:00)
[2017-08-04] MEDS ORDERED: CITRIC ACID-SODIUM CITRATE LIQ 30 ML UDC ONE (17:04)
[2017-08-04] MEDS: ZOLPIDEM TARTRATE 5 MG TAB PO PRN ×2 (21:55)
[2017-08-05] VITALS (48 sets, daily range): BP systolic 142–167; BP diastolic 75–92; PULSE 105–127; RESP 20–26; TEMP 97.4–98.7; O2SAT 97–100
[2017-08-05] MEDS: ACETAMINOPHEN 325 MG TAB PO PRN ×3 (06:20→19:36)
[2017-08-05] MEDS: MAGNESIUM SULFATE 40 GM PREMIX 1,000 ML IV SCH (07:00)
--- NOTE | 2017-08-05 08:52 | PD.OB.ANTE ---
Subjective Diagnosis: (1) , high-risk Diagnosis: Principal Interval History Pt denies any concerns today. She is agreeable to stay for monitoring until tomorrow. She is s/p Magnesium x 12 hr yesterday for neuroprotection She did have hydralazine x 1 yesterday for BPs 160/95 sustained BPs now 140s/80s She is s/p Betamethasone x 2 Occasional headache relieved with Tylenol. No abdominal pain, no vision disturbances. Reports active movements. Denies contractions, Pt is a 37 yo at 28 weeks and 6 days. Pt has mono-di twins Twin A with VSD, 2VC and IUGR less than 10th centile Twin B with IUGR less than 10th centile. Last EFW was done 07-18-2017 Plan was to rescan in 3 weeks, Pt has testing with Dopplers/BPP twice a week after 28 weeks. Pt was seen at [facility] on 08/01/2017 and had normal Dopplers / BPP However she was noted to have elevated BP. Pt was admitted for PIH evaluation and 24 hour urine collection was initiated, noted to have protein elevated at 364mg Antepartum ROS: Denies: New complaints, Loss of fluid, Vaginal bleeding, movement normal, Contractions (Lacy Pillai MD R2) Objective Vital Signs Vital Signs Date Time Temp Pulse Resp B/P (MAP) Pulse Ox O2 Delivery O2 Flow Rate FiO2 08/05/17 07:00 97.4 20 08/05/17 06:20 117 144/89 (107) 08/05/17 06:00 22 08/05/17 04:20 114 20 143/77 (99) 99 08/05/17 03:00 20 08/05/17 02:00 22 08/05/17 01:00 26 08/05/17 00:55 106 97 08/05/17 00:50 106 97 08/05/17 00:45 105 97 08/05/17 00:40 98 08/05/17 00:40 105 08/05/17 00:35 106 08/05/17 00:35 97 08/05/17 00:30 108 08/05/17 00:30 97 08/05/17 00:25 107 08/05/17 00:25 98 08/05/17 00:20 110 08/05/17 00:20 98 08/05/17 00:15 111 98 08/05/17 00:04 114 142/85 (104) 08/05/17 00:00 24 08/04/17 23:10 114 98 08/04/17 23:05 110 99 08/04/17 23:01 109 141/84 (103) 08/04/17 23:00 110 99 08/04/17 22:05 110 99 08/04/17 22:01 108 165/96 (119) 08/04/17 22:00 110 99 08/04/17 21:50 24 08/04/17 21:05 115 08/04/17 21:01 115 159/101 (120) 08/04/17 21:00 118 08/04/17 20:35 118 08/04/17 20:30 121 151/85 (107) 08/04/17 20:25 121 08/04/17 20:21 97.6 08/04/17 20:20 121 08/04/17 20:15 122 08/04/17 20:10 121 08/04/17 20:10 122 08/04/17 20:05 123 08/04/17 20:00 119 154/96 (115) 08/04/17 20:00 120 08/04/17 19:37 28 08/04/17 19:37 98.0 08/04/17 19:35 120 08/04/17 19:30 119 08/04/17 19:30 121 152/89 (110) 08/04/17 19:25 122 08/04/17 19:20 122 08/04/17 19:15 122 08/04/17 19:10 124 08/04/17 19:05 122 08/04/17 19:00 20 08/04/17 19:00 123 151/85 (107) 08/04/17 19:00 123 16 18:55 125 1617 18:50 125 16/17 18:45 124 16/17 18:40 124 16/17 18:35 128 16/17 18:30 129 16/17 18:30 128 151/86 (107) 1617 18:25 128 16/17 18:20 127 16/17 18:15 125 16/17 18:10 122 16/17 18:05 122 1617 18:00 123 160/95 (116) 1617 18:00 121 1617 17:57 18 1617 17:57 8 16/17 17:55 122 16/17 17:50 122 1617 17:45 121 147/115 (126) 1617 17:45 122 1617 17:40 123 1617 17:35 121 1617 17:31 121 160/82 (108) 1617 17:30 122 1617 17:25 122 1617 17:20 123 1617 17:15 120 17 17:15 122 162/93 (116) 08/04/17 17:10 123 17 17:05 119 17 17:03 98.3 120 19 159/102 1617 17:03 121 159/102 (121) 08/04/17 17:00 123 161/97 (118) 17 17:00 18 1617 17:00 20 1617 17:00 123 1617 16:55 122 1617 16:50 121 1617 16:45 123 1617 16:40 123 1617 16:35 122 1617 16:30 120 1617 16:30 122 157/95 (115) 1617 16:25 119 1617 16:24 97.6 118 19 150/95 16/17 16:20 121 16/17 16:15 122 16/17 16:10 121 16/17 16:00 122 150/95 (113) 1617 15:30 97.6 16/17 15:30 19 16/17 15:30 121 148/79 (102) 16/17 15:20 122 16/17 15:15 118 16/17 15:15 121 161/98 (119) 1617 15:10 122 16/17 15:05 122 16/17 15:00 119 9/16/17 15:00 19 08/04/17 15:00 120 164/99 (120) 08/04/17 14:55 124 08/04/17 14:50 123 08/04/17 14:45 119 163/104 (123) 08/04/17 14:45 122 08/04/17 14:40 118 08/04/17 14:35 118 08/04/17 14:30 115 08/04/17 14:30 119 161/102 (121) 08/04/17 14:25 120 08/04/17 14:20 121 08/04/17 14:15 119 08/04/17 14:15 118 08/04/17 14:10 121 08/04/17 14:05 123 08/04/17 14:00 119 08/04/17 14:00 122 161/99 (119) 08/04/17 13:55 122 08/04/17 13:55 18 08/04/17 13:50 123 08/04/17 13:45 122 08/04/17 13:40 122 08/04/17 13:35 123 08/04/17 13:30 122 08/04/17 13:30 122 159/93 (115) 08/04/17 13:25 122 08/04/17 13:20 120 08/04/17 13:15 121 08/04/17 13:10 120 08/04/17 13:05 119 08/04/17 13:00 19 08/04/17 13:00 119 08/04/17 13:00 119 156/93 (114) 08/04/17 12:55 118 08/04/17 12:50 121 08/04/17 12:45 120 08/04/17 12:45 121 08/04/17 12:37 98.0 120 18 147/82 08/04/17 12:37 120 147/82 (103) 08/04/17 12:29 97.8 08/04/17 12:20 97.8 119 20 145/83 08/04/17 12:05 119 145/83 (103) Intake & Output 08/05/17 08/05/17 07:00 19:00 Intake Total 400 ml Balance 400 ml Packed Cells 400 ml Lab & Micro Results Test 08/04/17 09:55 08/05/17 07:45 White Blood Count 13.9 TH/MM3 Red Blood Count 2.55 MIL/MM3 Hemoglobin 8.3 GM/DL 9.3 GM/DL Hematocrit 23.8 % 27.4 % Mean Corpuscular Volume 93.3 FL Mean Corpuscular Hemoglobin 32.5 PG Mean Corpuscular Hemoglobin Concent 34.9 % Red Cell Distribution Width 13.7 % Platelet Count 317 TH/MM3 Mean Platelet Volume 8.5 FL Blood Urea Nitrogen 6 MG/DL Creatinine 0.51 MG/DL Random Glucose 201 MG/DL Total Protein 6.5 GM/DL Albumin 2.3 GM/DL Calcium Level 8.3 MG/DL Alkaline Phosphatase 70 U/L Aspartate Amino Transf (AST/SGOT) 17 U/L Alanine Aminotransferase (ALT/SGPT) 15 U/L Total Bilirubin 0.2 MG/DL Sodium Level 137 MEQ/L Potassium Level 2.7 MEQ/L Chloride Level 102 MEQ/L Carbon Dioxide Level 23.4 MEQ/L Anion Gap 12 MEQ/L Estimat Glomerular Filtration Rate 136 ML/MIN Date/Time Source Procedure Growth Status 08/03/17 03:35 Urine Clean Catch Urine Culture - Final 50-100,000 CFU/ML MIXED GRAM POSITIVE... Complete Physical Exam GENERAL: Well-nourished, well-developed patient. CARDIOVASCULAR: Regular rate and rhythm without murmurs, gallops, or rubs. RESPIRATORY: Breath sounds equal bilaterally. No accessory muscle use. ABDOMEN/GI: Abdomen soft, non-tender. Gravid with fundus above umbilicus but small for twin gestational age GENITOURINARY: deferred Uterine Contractions: [none] FHT's: intermittent monitoring, due this morning. See note from yesterday for most recent monitoring results EXTREMITIES: No cyanosis or edema, non-tender, without signs of DVT. Normal DTRs at patella, no clonus. (Lacy Pillai MD R2) Assessment and Plan Problem List: (1) , high-risk ICD Codes: O09.90 - Supervision of high risk , unspecified, unspecified trimester Status: Acute Qualifiers: Qualified Codes: O09.93 - Supervision of high risk , unspecified, third trimester (2) Pre-eclampsia in third trimester ICD Codes: O14.93 - Unspecified pre-eclampsia, third trimester Status: Acute (3) Twin gestation in third trimester ICD Codes: O30.003 - Twin , unspecified number of placenta and unspecified number of amniotic sacs, third trimester Qualifiers: Qualified Codes: O30.033 - Twin , monochorionic/diamniotic, third trimester (4) IUGR, ICD Codes: P05.9 - [place] affected by slow intrauterine growth, unspecified Status: Acute Assessment and Plan 29 and 0/7 weeks mono/di twins. High risk given pre-eclampsia and IUGR Twin A with VSD, 2VC, and IUGR , Twin B with IUGR. 1. PRE-ECLAMPSIA Normal testing on 08/01/2017 Pt was noted to have elevated BP at [facility] 08-01-2017 Pre-eclampsia by criteria of 24hr urine protein >300mg/24hr Obtain follow-up CBC for platelets and CMP for LFTs today 24 hour urine protein is 364mg 08-04-2017 Initial PIH labs wnl. Pt is asymptomatic. FHR Cat 1 x 2 BP 140-150/80-90s at this time, s/p Magnesium on 08/04 (12hr) and hydralazine x 1 on 08/04 (evening) Betamethasone 08/03-08/04 (2 doses) D/W MFM Dr Boyle, ideally would like patient kept until [facility] on Sunday08-06-2017. Agrees to stay for this evaluation. 2. ANEMIA Initial Hgb 7.8g/dL Transfused 2 units PRBCs on 08/04 H&H this morning 9.7 after 2U 3.HYPOKALEMIA PO replacement 08/04 (50MEQ x 1, with daily repletion ordered) Repeat CMP pending (Lacy Pillai MD R2) Attestation Patient seen and evaluated with resident under direct supervision, agree with assessment and plan. A CBC and CMP will be added to her morning labs. (David Zeng MD) Lacy Pillai MD R2 Aug 05, 2017 08:51 David Zeng MD Aug 05, 2017 09:48
[2017-08-05] MEDS: SODIUM CHLORIDE FLUSH BID IV FLUSH SCH ×2 (09:00→21:17)
[2017-08-05] MEDS: POTASSIUM CHLORIDE 10 MEQ CAP PO SCH ×2 (09:13→20:59)
[2017-08-05 09:26] LABS: HEMATOCRIT 27.4 % (35.0-46.0); MEAN CELL VOLUME 90.7 FL (80.0-100.0); MEAN CORPUSCULAR HEMOGLOBIN 30.9 PG (27.0-34.0); MEAN CORPUSCULAR HGB CONC 34.1 % (32.0-36.0); PLATELET COUNT 325 TH/MM3 (150-450); RED BLOOD COUNT 2.99 MIL/MM3 (4.00-5.30); RED CELL DISTRIBUTION WIDTH 14.8 % (11.6-17.2); REVIEW FLAG FINAL; WHITE BLOOD COUNT 14.6 TH/MM3 (4.0-11.0)
[2017-08-05 14:30] LABS: BICARBONATE 21.4 MEQ/L (21.0-32.0); POTASSIUM 3.1 MEQ/L (3.5-5.1)
[2017-08-05 14:33] LABS: INDIRECT BILIRUBIN 0.1 MG/DL (0.0-0.8); TOTAL BILIRUBIN ADULT 0.2 MG/DL (0.2-1.0)
[2017-08-05] MEDS: hydrALAZINE HCL 20 MG/ML VIAL IV PRN (18:37)
[2017-08-05] MEDS: ZOLPIDEM TARTRATE 5 MG TAB PO PRN (21:17)
[2017-08-06] VITALS (37 sets, daily range): BP systolic 141–177; BP diastolic 79–108; PULSE 94–116; RESP 18–22; TEMP 97.9–98.8
[2017-08-06] MEDS: MAGNESIUM SULFATE 40 GM PREMIX 1,000 ML IV SCH ×2 (03:00→20:37)
[2017-08-06] MEDS: ACETAMINOPHEN 325 MG TAB PO PRN ×3 (04:46→14:11)
[2017-08-06] MEDS: hydrALAZINE HCL 20 MG/ML VIAL IV PRN ×3 (04:55→06:02)
[2017-08-06] MEDS ORDERED: LABETALOL HCL 100 MG TAB PO ONE (06:30)
--- NOTE | 2017-08-06 08:22 | PD.OB.ANTE ---
Subjective Diagnosis: (1) , high-risk Diagnosis: Principal (2) Pre-eclampsia in third trimester Diagnosis: Principal (3) Twin gestation in third trimester Diagnosis: Principal (4) IUGR, Diagnosis: Principal Interval History Pt seen and examined at bedside. No acute events overnight. However, Pt continues to have elevated BPs, 24hr range (147-177/75-108). Pt denies ARCE, SOB, vision issues, abd pain,and LE swelling. Pt also denies N/V and contractions. Pt with no complaints this am. Antepartum ROS: Reports: New complaints Objective Vital Signs Vital Signs Date Time Temp Pulse Resp B/P (MAP) Pulse Ox O2 Delivery O2 Flow Rate FiO2 08/06/17 07:20 102 144/90 (108) 08/06/17 07:00 95 154/79 (104) 08/06/17 06:40 107 142/91 (108) 08/06/17 06:20 105 169/94 (119) 08/06/17 06:06 24 08/06/17 06:00 104 169/106 (127) 08/06/17 05:40 99 167/100 (122) 08/06/17 05:27 103 175/96 (122) 08/06/17 05:11 108 171/103 (125) 08/06/17 05:00 22 08/06/17 04:52 106 177/98 (124) 08/06/17 04:50 98.0 08/06/17 04:45 106 173/108 (129) 08/06/17 04:01 115 162/93 (116) 08/06/17 03:00 20 08/06/17 00:34 18 08/05/17 21:18 24 08/05/17 21:15 115 147/75 (99) 08/05/17 21:01 111 167/89 (115) 08/05/17 19:42 100 08/05/17 19:40 98.7 22 08/05/17 19:28 124 149/88 (108) 08/05/17 19:00 127 160/88 (112) 08/05/17 18:40 119 153/90 (111) 08/05/17 18:33 120 164/91 (115) 08/05/17 18:15 114 162/88 (112) 08/05/17 18:13 117 08/05/17 16:35 115 159/92 (114) 08/05/17 16:00 98.0 08/05/17 15:10 115 08/05/17 15:05 115 08/05/17 15:00 121 08/05/17 14:55 118 08/05/17 14:50 118 08/05/17 14:45 118 08/05/17 14:40 116 08/05/17 14:35 119 08/05/17 14:30 116 08/05/17 14:25 118 08/05/17 14:20 115 08/05/17 14:15 118 08/05/17 14:10 120 08/05/17 14:05 121 08/05/17 14:00 121 08/05/17 11:00 98.2 21 08/05/17 10:28 121 151/86 (107) Lab & Micro Results Test 08/05/17 13:20 Blood Urea Nitrogen 5 MG/DL Creatinine 0.50 MG/DL Random Glucose 176 MG/DL Calcium Level 7.6 MG/DL Sodium Level 138 MEQ/L Potassium Level 3.1 MEQ/L Chloride Level 105 MEQ/L Carbon Dioxide Level 21.4 MEQ/L Anion Gap 12 MEQ/L Estimat Glomerular Filtration Rate 140 ML/MIN Total Bilirubin 0.2 MG/DL Direct Bilirubin 0.1 MG/DL Indirect Bilirubin 0.1 MG/DL Aspartate Amino Transf (AST/SGOT) 13 U/L Alanine Aminotransferase (ALT/SGPT) 13 U/L Alkaline Phosphatase 62 U/L Total Protein 6.2 GM/DL Albumin 2.4 GM/DL Date/Time Source Procedure Growth Status 08/03/17 03:35 Urine Clean Catch Urine Culture - Final 50-100,000 CFU/ML MIXED GRAM POSITIVE... Complete Physical Exam GENERAL: Well-nourished, well-developed patient. CARDIOVASCULAR: Regular rate and rhythm without murmurs, gallops, or rubs. RESPIRATORY: Breath sounds equal bilaterally. No accessory muscle use. ABDOMEN/GI: Abdomen soft, non-tender. GENITOURINARY: Uterine Contractions: none FHT's: Pt monitored until 15:12 on 08/05 Category: 1 Baseline: 130 Reactive: positive Variability: moderate Decels: none EXTREMITIES: No cyanosis or edema, non-tender, without signs of DVT. Normal reflexes. Assessment and Plan Problem List: (1) , high-risk ICD Codes: O09.90 - Supervision of high risk , unspecified, unspecified trimester Status: Acute Qualifiers: Qualified Codes: O09.93 - Supervision of high risk , unspecified, third trimester (2) Pre-eclampsia in third trimester ICD Codes: O14.93 - Unspecified pre-eclampsia, third trimester Status: Acute (3) Twin gestation in third trimester ICD Codes: O30.003 - Twin , unspecified number of placenta and unspecified number of amniotic sacs, third trimester Qualifiers: Qualified Codes: O30.033 - Twin , monochorionic/diamniotic, third trimester (4) IUGR, ICD Codes: P05.9 - affected by slow intrauterine growth, unspecified Status: Acute Assessment and Plan 37yo at 29/1 weeks mono/di twins. High risk given pre-eclampsia and IUGR Twin A with VSD, 2VC, and IUGR , Twin B with IUGR. 1. PRE-ECLAMPSIA Normal testing on 08/01/2017 Pt was noted to have elevated BP at [facility] 08-01-2017 Pre-eclampsia by criteria of 24hr urine protein >300mg/24hr 08/05: CBC-platelets (325) and CMP-- LFTs (AST- 13 and ALT-13) 24 hour urine protein is 364mg 08-04-2017 Initial PIH labs wnl. Pt is asymptomatic. FHR Cat 1 x 2 BP 140-170/70-100s at this time, s/p Magnesium, -labetalol 100mg PO BID -hydralazine 5mg IV Q30 PRN -f/u am labs: cbc, cmp, uric acid Betamethasone 08/03-08/04 (2 doses) patient to obtain BPP at [facility] today 08-06-2017. Agrees to stay for this evaluation. 2. ANEMIA Initial Hgb 7.8g/dL Transfused 2 units PRBCs on 08/04 H&H .06/14 after 2U 3.HYPOKALEMIA PO replacement 08/04 (50MEQ x 1, with daily repletion ordered) Repeat CMP-- K 3.1 on 08/05 Richard Knox MD R1 Aug 06, 2017 08:22
[2017-08-06] MEDS: LABETALOL HCL 100 MG TAB PO SCH ×2 (09:00→21:00)
[2017-08-06 09:14] LABS: HEMATOCRIT 28.6 % (35.0-46.0); MEAN CELL VOLUME 90.8 FL (80.0-100.0); MEAN CORPUSCULAR HEMOGLOBIN 31.2 PG (27.0-34.0); MEAN CORPUSCULAR HGB CONC 34.4 % (32.0-36.0); PLATELET COUNT 342 TH/MM3 (150-450); RED BLOOD COUNT 3.15 MIL/MM3 (4.00-5.30); RED CELL DISTRIBUTION WIDTH 14.8 % (11.6-17.2); REVIEW FLAG FINAL; WHITE BLOOD COUNT 12.8 TH/MM3 (4.0-11.0)
[2017-08-06] MEDS: SODIUM CHLORIDE FLUSH BID IV FLUSH SCH (09:29)
[2017-08-06] MEDS: POTASSIUM CHLORIDE 10 MEQ CAP PO SCH ×2 (09:29→21:00)
[2017-08-06 10:08] LABS: ALKALINE PHOSPHATASE 61 U/L (45-117); ALT (GPT) 16 U/L (10-53); ANION GAP 10 MEQ/L (5-15); AST (GOT) 16 U/L (15-37); BICARBONATE 23.1 MEQ/L (21.0-32.0); BLOOD UREA NITROGEN 7 MG/DL (7-18); CHLORIDE 105 MEQ/L (98-107); GLOMERULAR FILTRATION RATE 242 ML/MIN (>89); POTASSIUM 3.5 MEQ/L (3.5-5.1); SODIUM (NA) 138 MEQ/L (136-145); TOTAL BILIRUBIN ADULT 0.3 MG/DL (0.2-1.0); URIC ACID 3.3 MG/DL (2.6-6.0)
--- NOTE | 2017-08-06 19:54 | HHI.PR ---
CAN CRIMPER Note Note I'm at the bedside discussing patient care with Sarya. Since admission her blood pressures continued to remain very high, the last 24 hours have remained in the severe range with systolics 160-180 and diastolics 104-114. Ultrasound today confirmed that patient has mono/di twin with both babies with IUGR measuring less than the 1st percentile. Patient has received multiple doses of both oral and IV antihypertensives since admission. She is received magnesium sulfate for neuro protection and has completed her steroids. Given her worsening blood pressures patient will be delivered due to severe disease. On admission patient was given 2 units of packed red blood cells due to severe anemia and she understands the possibilities of blood loss during delivery which will be a due to severity of blood pressure. We will restart the magnesium sulfate and administer IV labetalol due to blood pressure of 178/ 108. Neonatology had previously been notified regarding the need for delivery due to prematurity and cardiac defect and twin B. Maureen Garcia MD Aug 06, 2017 19:55
[2017-08-06] MEDS ORDERED: CALCIUM GLUCONATE 10% 1 GM/10 ML VIAL IV PUSH PRN (20:00)
[2017-08-06] MEDS ORDERED: MAGNESIUM SULFATE 4 GM PREMIX 100 ML IV ONE (20:00)
[2017-08-06] MEDS ORDERED: ceFAZolin 2 GM PREMIX 50 ML IV SCH (20:00)
[2017-08-06] MEDS ORDERED: LABETALOL HCL 100 MG/20 ML VIAL IV PUSH PRN (20:00)
[2017-08-06] MEDS ORDERED: SODIUM CHLORIDE 0.9% FLUSH 5 ML FLUSH IV PRN (20:00)
[2017-08-06] MEDS: SODIUM CHLORIDE 0.9% FLUSH 5 ML FLUSH IV SCH (20:37)
[2017-08-06] MEDS: LACTATED RINGER'S 1000 ML INJ 1,000 ML IV SCH ×2 (20:37→21:16)
[2017-08-06] MEDS ORDERED: OXYTOCIN 10 UNIT/ML AMP ONE ×3 (21:23→22:57)
[2017-08-06] MEDS ORDERED: MORPHINE SULFATE PF 5 MG/10 ML VIAL ONE (22:35)
[2017-08-06] MEDS ORDERED: ONDANSETRON HCL 4 MG/2 ML VIAL ONE (22:35)
[2017-08-07] MEDS ORDERED: SODIUM CHLORIDE 0.9% FLUSH 10 ML FLUSH IV FLUSH PRN (00:15)
[2017-08-07] MEDS ORDERED: ACETAMINOPHEN 1000 MG/100 ML 100 ML IV ONE ×2 (00:15→00:52)
[2017-08-07] MEDS ORDERED: OXYTOCIN 30 UNITS-500ML PREMIX 500 ML IV ONE (00:15)
[2017-08-07] MEDS ORDERED: oxyCODONE/ACETAMINOPHEN 5 MG/325 MG TAB PO PRN ×2 (00:15)
[2017-08-07] MEDS ORDERED: DOCUSATE SODIUM 50 MG/SENNA 8.6 MG TAB PO PRN (00:15)
[2017-08-07] MEDS ORDERED: ONDANSETRON HCL 4 MG/2 ML VIAL IV PUSH PRN (00:15)
[2017-08-07] MEDS ORDERED: SIMETHICONE 80 MG CHEWABLE TAB PO PRN (00:15)
[2017-08-07] MEDS ORDERED: MIDAZOLAM HCL 2 MG/2 ML VIAL ONE (00:20)
--- NOTE | 2017-08-07 00:24 | PD.OB.DELI ---
Procedure Note Section Procedure Pre Op Diagnosis: (1) IUGR, (2) Twin gestation in third trimester (3) 29 weeks gestation of (4) Severe pre-eclampsia Post Op Diagnosis: Performed by Maureen Garcia Procedure: Primary Low Transverse Sec, Other Indication for delivery: Maternal medical problems (severe preeclampsia) Previous condition: None Informed consent obtained: For anesthesia, For procedure Confirmed correct: Time-out taken Anesthesia: Spinal Medication prior to procedure: Antibiotics, IV, Magnesium Sulfate Monitoring during procedure: Blood pressure monitoring, grease and tallow pumper, Pulse oximetry Urinary catheter: Inserted using sterile technique, To dependent drainage Sterile preparation: Duraprep Position: Supine with wedge to left side Operative Features Skin Incision: Pfannenstiel Uterine Incision: Low transverse w/knife / blunt ext Membranes Ruptured: Artificially, Amount of liquid (normal), Appearance of fluid (clear) Presentation: Vertex Delivery date: Aug 07, 2017 Delivery time: 22:45 Delivery of : Uneventful : Male, Multiple (Baby B male, at 2246 clear fluid, vertex 1120gms apgars 8/8) One Minute : 4 Five Minute : 5 Ten Minute : 6 Weight: 1110gms Status of : Viable Placenta delivered: Intact, Sent to pathology (c/w mono/di placenta) Medications: Antibiotics, Oxytocin Estimated blood loss: 1000cc Procedure tolerated: Well Maternal Condition: Stable Condition: Stable Maureen Garcia MD Aug 07, 2017 00:24
[2017-08-07 00:44] LABS: BLOOD GAS BASE EXCESS 3.6 mmol/L (-2-2); BLOOD GAS O2 HGB SATURATION 47 % (90-100); CORD BLOOD GAS HCO3 29 mmol/L (21-29); CORD BLOOD GAS PCO2 54 mmHg (34-78); CORD BLOOD GAS PH 7.35 (7.14-7.42)
[2017-08-07 00:44] LABS: BLOOD GAS BASE EXCESS 3.5 mmol/L (-2-2); BLOOD GAS O2 HGB SATURATION 58 % (90-100); CORD BLOOD GAS HCO3 29 mmol/L (21-29); CORD BLOOD GAS PCO2 54 mmHg (34-78); CORD BLOOD GAS PH 7.35 (7.14-7.42); CORD BLOOD GAS PO2 27 mmHG; DRAW SITE Y; STAT YES
[2017-08-07 00:45] LABS: CORD BLOOD GAS PO2 22 mmHG; DRAW SITE CORD BLOOD; STAT YES
[2017-08-07] MEDS ORDERED: EPIDURAL-DIPHENHYDRAMINE HCL 50 MG CAP PO PRN (03:15)
[2017-08-07] MEDS ORDERED: EPIDURAL-NO SYSTEMIC NARCOTICS PRN (03:15)
[2017-08-07] MEDS ORDERED: EPIDURAL-DO NOT ADMINISTER ANTICOAGULANTS PRN (03:15)
[2017-08-07] MEDS ORDERED: EPIDURAL-NALOXONE HCL 0.4 MG/ML AMP IV PUSH PRN (03:15)
[2017-08-07] MEDS ORDERED: EPIDURAL-DIPHENHYDRAMINE HCL 50 MG/ML VIAL IV PUSH PRN (03:15)
[2017-08-07] MEDS: LACTATED RINGER'S 1000 ML INJ 1,000 ML IV SCH ×3 (05:15→15:15)
[2017-08-07] MEDS: IBUPROFEN 600 MG TAB PO PRN ×3 (07:01→20:45)
--- NOTE | 2017-08-07 08:22 | HHI.OB ---
Subjective Post Operative Day: 1 Remarks Pt seen and examined this morning. Postoperative day # 1 AFVSS overnight. Incision not draining. Pt stated pain is minimal, rate 3/10. Decreased lochia. Denies dysuria. No breast tenderness. Appetite good. No nausea or vomiting. Patient has not yet had a bowel movement. Ambulating well. Denies calf pain, shortness of breath ARCE, SOB. Pt complained of generalized itchiness since c/s. Objective Vitals/I&O Vital Signs Date Time Temp Pulse Resp B/P (MAP) Pulse Ox O2 Delivery O2 Flow Rate FiO2 08/06/17 23:05 101 161/94 (116) 08/06/17 21:14 20 08/06/17 21:09 154/94 (114) 08/06/17 21:09 107 08/06/17 20:55 104 149/101 (117) 08/06/17 20:50 150/87 (108) 08/06/17 20:45 102 152/87 (108) 08/06/17 19:46 177/99 (125) 08/06/17 19:45 94 08/06/17 19:40 103 08/06/17 19:35 107 08/06/17 19:26 95 169/96 (120) 08/06/17 19:17 20 08/06/17 19:16 169/106 (127) 08/06/17 19:14 163/102 (122) 08/06/17 19:13 97.9 08/06/17 16:03 112 161/96 (117) 08/06/17 16:00 98.8 20 08/06/17 12:03 109 20 141/82 (101) 08/06/17 11:54 114 173/103 (126) 08/06/17 11:47 18 08/06/17 09:07 98.1 08/06/17 09:05 116 08/06/17 08:58 114 154/84 (107) Intake & Output 08/07/17 08/07/17 07:00 19:00 Intake Total 250 ml Balance 250 ml Intake IV Total 250 ml Result Diagram: 08/06/1781208/06/17812 Objective Remarks GENERAL: Well-nourished, well-developed patient. CARDIOVASCULAR: Normal s1 and S2. Regular rate and rhythm without murmurs, gallops, or rubs. RESPIRATORY: Breath sounds equal bilaterally. No accessory muscle use. ABDOMEN/GI: Abdomen soft, slight tenderness on lower abdomen, bowel sounds present. Incision: Clean, dry and intact. Fundus: Firm, non-tender at umbilicus. GENITOURINARY: Light to moderate bleeding. EXTREMITIES: No cyanosis or edema, non-tender, without signs of DVT. Medications and IVs Current Medications Medications (Trade) Dose Ordered Sig/Dilshad Route Start Time Stop Time Status Last Admin (Tylenol) 650 mg Q4H PRN PO 08/03/17 05:15 08/06/17 14:11 (Ambien) 5 mg HS PRN PO 08/03/17 05:15 08/05/17 21:17 (Percocet 5-325 Mg) 1 tab Q4H PRN PO 08/03/17 05:15 (Percocet 5-325 Mg) 2 tab Q4H PRN PO 08/03/17 05:30 (Milk Of Magnesia Liq) 30 ml QID PRN PO 08/03/17 05:30 (Mag-Al Plus Susp Liq) 30 ml QID PRN PO 08/03/17 05:30 (Apresoline Inj) 5 mg Q30M PRN IV 08/03/17 05:30 08/06/17 06:02 (KCl) 10 meq BID PO 08/04/17 09:00 08/06/17 09:29 (Tylenol) 650 mg Q4H PRN PO 08/04/17 11:15 08/04/17 11:50 (Benadryl) 25 mg Q4H PRN PO 08/04/17 11:15 08/04/17 11:50 (Trandate) 100 mg Q12HR PO 08/06/17 09:00 Lactated Ringer's 1,000 ml @ 75 mls/hr [id number] IV 08/06/17 20:00 08/06/17 21:16 (NS Flush) 2 ml UNSCH PRN IV 08/06/17 20:00 (NS Flush) 2 ml BID IV 08/06/17 21:00 08/06/17 20:37 Magnesium Sulfate 1,000 ml @ 50 mls/hr Q20H IV 08/06/17 19:48 08/06/17 20:37 (Calcium Gluconate Inj) 1 gm UNSCH PRN IV PUSH 08/06/17 20:00 Cefazolin Sodium/ Dextrose 50 ml @ 100 mls/hr [employer] PAINT IV 08/06/17 20:00 08/10/17 19:59 08/06/17 21:16 Lactated Ringer's 1,000 ml @ 100 mls/hr Q10H IV 08/07/17 05:15 08/08/17 01:14 Oxytocin 500 ml @ 100 mls/hr UNSCH X1 PRN IV 08/07/17 10:15 08/08/17 10:14 (NS Flush) 2 ml BID IV FLUSH 08/07/17 09:00 (NS Flush) 2 ml UNSCH PRN IV FLUSH 08/07/17 00:15 (Mylicon Chew) 80 mg QID PRN PO 08/07/17 00:15 (Motrin) 600 mg Q6H PRN PO 08/07/17 00:15 08/07/17 07:01 (Percocet 5-325 Mg) 1 tab Q4H PRN PO 08/07/17 00:15 (Percocet 5-325 Mg) 2 tab Q4H PRN PO 08/07/17 00:15 (Lexy-Colace) 2 tab Q12H PRN PO 08/07/17 00:15 (M-M-R Ii Inj) 0.5 ml ONCE ONCE SQ 08/08/17 16:00 08/08/17 16:01 (Boostrix Inj) 0.5 ml ONCE ONCE IM 08/08/17 16:00 08/08/17 16:01 (Zofran Inj) 4 mg Q6H PRN IV PUSH 08/07/17 00:15 Miscellaneous Information NO SYSTEMIC NARCOTICS TO BE GIVEN FO... UNSCH PRN .XX 08/07/17 03:15 08/08/17 03:14 (Narcan Inj) 0.4 mg UNSCH PRN IV PUSH 08/07/17 03:15 08/08/17 03:14 (Benadryl Inj) 25 mg Q6H PRN IV PUSH 08/07/17 03:15 08/08/17 03:14 08/07/17 04:06 (Benadryl) 50 mg Q6H PRN PO 08/07/17 03:15 08/08/17 03:14 Miscellaneous Information ALL NURSING DEPARTMENTS UNSCH PRN .XX 08/07/17 03:15 08/08/17 03:14 Assessment/Plan Problem List: (1) , high-risk ICD Codes: O09.90 - Supervision of high risk , unspecified, unspecified trimester Status: Resolved Qualifiers: Qualified Codes: O09.93 - Supervision of high risk , unspecified, third trimester (2) Pre-eclampsia in third trimester ICD Codes: O14.93 - Unspecified pre-eclampsia, third trimester Status: Acute (3) Twin gestation in third trimester ICD Codes: O30.003 - Twin , unspecified number of placenta and unspecified number of amniotic sacs, third trimester Status: Resolved Qualifiers: Qualified Codes: O30.033 - Twin , monochorionic/diamniotic, third trimester (4) IUGR, ICD Codes: P05.9 - [place] affected by slow intrauterine growth, unspecified Status: Resolved (5) delivery delivered ICD Codes: O82 - Encounter for delivery without indication Assessment and Plan 37yo who is POD #1 mono/di twins s/p due to uncontrolled elevated BPs. 1. S/p POD #1 -Continue routine care. -Percocet and Motrin PRN pain. -Encouraged OOB. Advised pelvic rest for 6 wks. Will need a f/u appt. in 1-2 wks for incision check. -c/w benadryl 25mg IV push Q6h PRN for itchiness -Anticipate discharge 08/09, pending clinical course. 2. PRE-ECLAMPSIA Normal testing on 08/01/2017 Pt was noted to have elevated BP at [facility] 08-01-2017 Pre-eclampsia by criteria of 24hr urine protein >300mg/24hr 08/05: CBC-platelets (325) and CMP-- LFTs (AST- 13 and ALT-13) 08/06: CBC-platelets (342) and CMP-- LFTs (AST-16 and ALT-16) 24 hour urine protein is 364mg 08-04-2017 Pt is asymptomatic. -c/w labetalol 100mg PO BID -pt started on mag 2 g after c/s -hydralazine 5mg IV Q30 PRN -f/u am labs: cbc, cmp, uric acid, mag level 3. ANEMIA, resolved Initial Hgb 7.8g/dL Transfused 2 units PRBCs on 08/04 H&H after 2U H/H stable-- 08/06 ( 9.8/28.6) 3.HYPOKALEMIA PO replacement 08/04 (50MEQ x 1, with daily repletion ordered) Repeat CMP-- K 3.1 on 08/05. K-- 3.5 on 08/06 -will continue to monitor dw MD Abilio Flores,Richard Gibbons MD R1 Aug 07, 2017 08:22
[2017-08-07] MEDS: POTASSIUM CHLORIDE 10 MEQ CAP PO SCH ×2 (09:00→21:00)
[2017-08-07] MEDS: LABETALOL HCL 100 MG TAB PO SCH (09:00)
[2017-08-07] MEDS: SODIUM CHLORIDE 0.9% FLUSH 5 ML FLUSH IV SCH ×2 (09:00→21:00)
[2017-08-07] MEDS: SODIUM CHLORIDE 0.9% FLUSH 10 ML FLUSH IV FLUSH SCH (09:00)
[2017-08-07] MEDS ORDERED: OXYTOCIN 30 UNITS-500ML PREMIX 500 ML IV PRN (10:15)
--- NOTE | 2017-08-07 10:38 | HHI.PR ---
[employer] Note Note S: informed by nurse that pt seemed sleepy and had apneic episode that lasted about 6secs. RR: 12 and pulse ox ranging from 86-95% when pt told to relax and take a deep breath. Nurse also stated on exam pt had crackles at R lower base. Pt seen and examined at bedside with Dr. Garcia. Pt has no complains. Denies difficulties breathing, CP, and SOB. O: GEN: AAOx3, siting comfortably in bed, no facial edema Cardio: Normal S1 and S2. no murmurs/gallops/rubs Resp: Crackles appreciated BL lower lobes, more pronounce on R lower lobe Ext: No LE edema, normal reflexes, Non-tender calves BL A/P: 37 yo s/p (IUGR twins) for uncontrolled elevated BPs. POD#1. Pt on magnesium for pre-eclampsia. asymptomatic with elevated BPs. Currently with low O2 saturation (ranging 86-95%). No third spacing noted. appropriate urinary output. -STAT magnesium level and CXR was ordered, pending -will decrease magnesium level to 1 g IV -Pt placed on continuos pulse ox and advised to sit up in bed update: CXR showed BL patchy infiltrates -Pt given 1 dose trail of lasix 20mg IV ONCE -Resp incentive spirometry ordered -mag level: 5.6, within therapeutic level -consider respiratory consults if pt develops apnea episode during sleep to evaluate for CPAP sdw Richard Solis MD R1 Aug 07, 2017 10:38
--- NOTE | 2017-08-07 11:01 | RADRPT ---
EXAM DATE/TIME: 08/07/2017 10:44 [facility] COMPARISON: No previous studies available for comparison. INDICATIONS : Congestion and low O2 saturation. MEDICAL HISTORY : Hypertension. SURGICAL HISTORY : section. ENCOUNTER: Initial ACUITY: 1 day PAIN SCORE: 0/10 LOCATION: Bilateral chest FINDINGS: A single view of the chest demonstrates cardiomegaly. Bilateral somewhat patchy airspace disease. Dif ferential diagnosis includes edema and infection. No significant effusion. No pneumothorax. CONCLUSION: 1. Cardiomegaly with bilateral somewhat patchy airspace disease. Differential diagnosis includes pippa a and infection. Duane Guillermo MD on August 07, 2017 at 10:58 Board Certified Radiologist. This report was verified electronically.
[2017-08-07] MEDS ORDERED: FUROSEMIDE 20 MG/2 ML VIAL IV PUSH ONE (11:15)
[2017-08-07] MEDS ORDERED: FUROSEMIDE 40 MG/4 ML VIAL ONE (11:25)
[2017-08-07 11:43] LABS: HEMATOCRIT 27.9 % (35.0-46.0); MEAN CELL VOLUME 92.4 FL (80.0-100.0); MEAN CORPUSCULAR HEMOGLOBIN 31.3 PG (27.0-34.0); MEAN CORPUSCULAR HGB CONC 33.9 % (32.0-36.0); PLATELET COUNT 279 TH/MM3 (150-450); RED BLOOD COUNT 3.01 MIL/MM3 (4.00-5.30); RED CELL DISTRIBUTION WIDTH 14.2 % (11.6-17.2); REVIEW FLAG FINAL; WHITE BLOOD COUNT 16.1 TH/MM3 (4.0-11.0)
[2017-08-07 12:01] LABS: ANION GAP 9 MEQ/L (5-15); AST (GOT) 15 U/L (15-37); BICARBONATE 25.1 MEQ/L (21.0-32.0); BLOOD UREA NITROGEN 6 MG/DL (7-18); CHLORIDE 98 MEQ/L (98-107); GLOMERULAR FILTRATION RATE 326 ML/MIN (>89); POTASSIUM 4.3 MEQ/L (3.5-5.1); SODIUM (NA) 132 MEQ/L (136-145); URIC ACID 3.3 MG/DL (2.6-6.0)
[2017-08-07 12:07] LABS: ALKALINE PHOSPHATASE 56 U/L (45-117); ALT (GPT) 17 U/L (10-53); TOTAL BILIRUBIN ADULT 0.2 MG/DL (0.2-1.0)
[2017-08-07] MEDS ORDERED: LABETALOL HCL 100 MG TAB PO ONE (13:30)
[2017-08-07] MEDS: MAGNESIUM SULFATE 40 GM PREMIX 1,000 ML IV SCH (15:23)
[2017-08-07] MEDS: oxyCODONE/ACETAMINOPHEN 5 MG/325 MG TAB PO PRN ×3 (15:43→20:45)
[2017-08-07] MEDS ORDERED: LABETALOL HCL 100 MG TAB PO SCH (21:00)
[2017-08-07] MEDS: LABETALOL HCL 200 MG TAB PO SCH (21:00)
[2017-08-07] MEDS ORDERED: LABETALOL HCL 200 MG TAB PO SCH (21:00)
[2017-08-07 21:11] LABS: BLOOD GAS BASE EXCESS 1.4 mmol/L (-2-2); BLOOD GAS HCO3 25 mmol/L (22-26); BLOOD GAS O2 HGB SATURATION 92 % (90-100); BLOOD GAS OXYGEN CONTENT 11.9 Vol % (12.0-20.0); BLOOD GAS PCO2 39 mmHg (38-42); BLOOD GAS PO2 68 mmHg (61-120); BLOOD GAS TOTAL HGB 9.2 G/DL (12.0-16.0); CRITICAL VALUE NO; DRAW SITE RT RADIAL; FIO2 21 %; NUMBER OF ARTERIAL PUNCTURES 1; STAT NO; TEMP CORR TO 98.6
[2017-08-08 00:30] VITALS: O2SAT 96
[2017-08-08] MEDS: oxyCODONE/ACETAMINOPHEN 5 MG/325 MG TAB PO PRN ×5 (01:24→19:19)
[2017-08-08] MEDS: IBUPROFEN 600 MG TAB PO PRN ×4 (03:10→21:12)
[2017-08-08 06:02] LABS: AUTOMATED NEUTROPHIL # 11.3 TH/MM3 (1.8-7.7); BASOPHIL % 0.2 % (0.0-2.0); EOSINOPHIL # 0.3 TH/MM3 (0-0.4); EOSINOPHIL % 1.8 % (0.0-4.0); HEMATOCRIT 25.5 % (35.0-46.0); HEMO FLAGS DIFF FINAL; LYMPH % 13.3 % (9.0-44.0); MEAN CELL VOLUME 92.2 FL (80.0-100.0); MEAN CORPUSCULAR HGB CONC 33.6 % (32.0-36.0); MONO % 8.2 % (0.0-8.0); NEUT % 76.5 % (16.0-70.0); PLATELET COUNT 288 TH/MM3 (150-450); RED BLOOD COUNT 2.76 MIL/MM3 (4.00-5.30); RED CELL DISTRIBUTION WIDTH 14.2 % (11.6-17.2); WHITE BLOOD COUNT 14.7 TH/MM3 (4.0-11.0)
[2017-08-08 06:21] LABS: MAGNESIUM 3.4 MG/DL (1.5-2.5)
--- NOTE | 2017-08-08 07:45 | HHI.OB ---
Subjective Post Operative Day: 2 Remarks Pt seen and examined this morning. Post operative day # 1 AFVSS overnight. Incision not draining. Decreased lochia. Denies dysuria. No breast tenderness. She is feeding the babies via bottle. Appetite good. No nausea or vomiting. Patient has not had a bowel movement or had bowel gas. Ambulating well. Denies calf pain or shortness of breath. Otherwise, she is doing well this morning and has no other concerns. Objective Vitals/I&O Vital Signs Date Time Temp Pulse Resp B/P (MAP) Pulse Ox O2 Delivery O2 Flow Rate FiO2 08/08/17 00:30 96 Nasal Cannula 2.00 08/08/17 00:30 96 Nasal Cannula 2.00 08/07/17 21:45 18 08/07/17 21:45 18 Result Diagram: 08/08/1751808/08/17518 Objective Remarks GENERAL: Well-nourished, well-developed patient. CARDIOVASCULAR: Normal s1 and S2. Regular rate and rhythm without murmurs, gallops, or rubs. RESPIRATORY: Breath sounds equal bilaterally. No accessory muscle use. ABDOMEN/GI: Abdomen soft, slight tenderness on lower abdomen, bowel sounds present. Incision: Clean, dry and intact. Fundus: Firm, non-tender at umbilicus. GENITOURINARY: Light to moderate bleeding. EXTREMITIES: No cyanosis or edema, non-tender, without signs of DVT. Medications and IVs Current Medications Medications (Trade) Dose Ordered Sig/Dilshad Route Start Time Stop Time Status Last Admin (Tylenol) 650 mg Q4H PRN PO 08/03/17 05:15 08/06/17 14:11 (Ambien) 5 mg HS PRN PO 08/03/17 05:15 08/05/17 21:17 (Percocet 5-325 Mg) 1 tab Q4H PRN PO 08/03/17 05:15 08/07/17 18:17 (Percocet 5-325 Mg) 2 tab Q4H PRN PO 08/03/17 05:30 08/08/17 06:37 (Milk Of Magnesia Liq) 30 ml QID PRN PO 08/03/17 05:30 (Mag-Al Plus Susp Liq) 30 ml QID PRN PO 08/03/17 05:30 (Apresoline Inj) 5 mg Q30M PRN IV 08/03/17 05:30 08/06/17 06:02 (KCl) 10 meq BID PO 08/04/17 09:00 08/07/17 21:00 (Tylenol) 650 mg Q4H PRN PO 08/04/17 11:15 08/04/17 11:50 (Benadryl) 25 mg Q4H PRN PO 08/04/17 11:15 08/04/17 11:50 Lactated Ringer's 1,000 ml @ 75 mls/hr [id number] IV 08/06/17 20:00 08/07/17 13:17 (NS Flush) 2 ml UNSCH PRN IV 08/06/17 20:00 (NS Flush) 2 ml BID IV 08/06/17 21:00 08/07/17 21:00 Magnesium Sulfate 1,000 ml @ 25 mls/hr Q24H IV 08/06/17 19:48 08/07/17 15:23 (Calcium Gluconate Inj) 1 gm UNSCH PRN IV PUSH 08/06/17 20:00 Cefazolin Sodium/ Dextrose 50 ml @ 100 mls/hr [employer] IV 08/06/17 20:00 08/10/17 19:59 08/06/17 21:16 Oxytocin 500 ml @ 100 mls/hr UNSCH X1 PRN IV 08/07/17 10:15 08/08/17 10:14 (NS Flush) 2 ml BID IV FLUSH 08/07/17 09:00 (NS Flush) 2 ml UNSCH PRN IV FLUSH 08/07/17 00:15 (Mylicon Chew) 80 mg QID PRN PO 08/07/17 00:15 (Motrin) 600 mg Q6H PRN PO 08/07/17 00:15 08/07/17 20:45 (Percocet 5-325 Mg) 1 tab Q4H PRN PO 08/07/17 00:15 (Percocet 5-325 Mg) 2 tab Q4H PRN PO 08/07/17 00:15 (Lexy-Colace) 2 tab Q12H PRN PO 08/07/17 00:15 (M-M-R Ii Inj) 0.5 ml ONCE ONCE SQ 08/08/17 16:00 08/08/17 16:01 (Boostrix Inj) 0.5 ml ONCE ONCE IM 08/08/17 16:00 08/08/17 16:01 (Zofran Inj) 4 mg Q6H PRN IV PUSH 08/07/17 00:15 (Trandate) 200 mg Q12HR PO 08/07/17 21:00 08/07/17 21:00 Assessment/Plan Problem List: (1) , high-risk ICD Codes: O09.90 - Supervision of high risk , unspecified, unspecified trimester Status: Resolved Qualifiers: Qualified Codes: O09.93 - Supervision of high risk , unspecified, third trimester (2) Pre-eclampsia in third trimester ICD Codes: O14.93 - Unspecified pre-eclampsia, third trimester Status: Acute (3) Twin gestation in third trimester ICD Codes: O30.003 - Twin , unspecified number of placenta and unspecified number of amniotic sacs, third trimester Status: Resolved Qualifiers: Qualified Codes: O30.033 - Twin , monochorionic/diamniotic, third trimester (4) IUGR, ICD Codes: P05.9 - affected by slow intrauterine growth, unspecified Status: Resolved (5) delivery delivered ICD Codes: O82 - Encounter for delivery without indication Assessment and Plan 37yo who is POD #2 mono/di twins s/p due to uncontrolled elevated BPs. 1. S/p POD #2 -Continue routine care. -Percocet and Motrin PRN pain. -Encouraged OOB. Advised pelvic rest for 6 wks. Will need a f/u appt. in 1-2 wks for incision check. -c/w benadryl 25mg IV push Q6h PRN for itchiness 2. PRE-ECLAMPSIA Normal testing on 08/01/2017 Pt was noted to have elevated SBP in 170s 08/05: CBC-platelets (325) and CMP-- LFTs (AST- 13 and ALT-13) 08/06: CBC-platelets (342) and CMP-- LFTs (AST-16 and ALT-16) Patient received Betamethasone 24 hour urine protein is 364mg 08-04-2017 Pt is asymptomatic. Increase labetalol 200mg PO BID as BP has remained elevated pt started on mag 2 g after c/s hydralazine 5mg IV Q30 PRN 3. ANEMIA, resolved Initial Hgb 7.8g/dL Transfused 2 units PRBCs on 08/04 H&H .06/14 after 2U H/H stable-- 08/06 ( 9.8/28.6) 3.HYPOKALEMIA PO replacement 08/04 (50MEQ x 1, with daily repletion ordered) Repeat CMP-- K 3.1 on 08/05. K-- 3.5 on 08/06 will continue to monitor 4. Respiratory Distress Please see progress note from 08/07 for event Patient administered 40mg Lasix with improvement CXR 08/07: Cardiomegaly with BL patchy airspace disease. DDx includes edema and infection. CXR 08/08: Pending Pulmonology consulted, appreciate recommendations DC: Pending clinical course thomas Andujar MD Discharge Planning Pending clinical course Clayton Milton MD R2 Aug 08, 2017 07:45
[2017-08-08 08:00] VITALS: O2SAT 97
--- NOTE | 2017-08-08 08:07 | MP ---
cc: REGINALD LEWIS M.D. DATE OF SURGERY: 08/07/2017 DATE OF : 1980 SURGEON Reginald Lewis. PREOPERATIVE DIAGNOSIS 1. 29 weeks gestation. 2. Monochorionic diamniotic twin gestation. 3. Severe preeclampsia. 4. Intrauterine growth restriction of both babies. 5. Two-vessel cord with both babies. 6. Ventricular septal defect in twin B. POSTOPERATIVE DIAGNOSIS 1. 29 weeks gestation. 2. Monochorionic diamniotic twin gestation. 3. Severe preeclampsia. 4. Intrauterine growth restriction of both babies. 5. Two-vessel cord with both babies. 6. Ventricular septal defect in twin B. PROCEDURE Primary low transverse section without extension. ESTIMATED BLOOD LOSS 1000 cc. ANESTHESIA Spinal. COMPLICATIONS No complications. MEDICATIONS Ancef two grams given prior to the procedure. DRAINS Walker to gravity. COUNTS Correct x3. FINDINGS 1. Normal uterus, tubes and ovaries. 2. Clear amniotic fluid for both babies. Both babies were in the vertex presentation. 3. Twin A was born at 2345 weighing 1110 grams with a two-vessel cord, male, Apgars 4, 5 and 6, vertex presentation. 4. Twin B was vertex presentation, male, born at 2346 weighing 1120 grams, two-vessel cord, Apgars 8 and 8. 5. Placenta was consistent with a monochorionic diamniotic presentation. DESCRIPTION OF PROCEDURE The patient was taken back to the operating room, prepped and draped in the usual sterile fashion and placed in the dorsal supine position with a wedge to her left side. The patient had magnesium sulfate going at 2 grams per hour and was given Ancef 2 grams prior to the procedure. The patient also completed a course of steroids 48 hours prior. A Pfannenstiel incision was made in the skin and taken down to the fascia. The fascia was nicked in the midline, extended bilaterally and taken off the rectus muscles. The rectus muscles were divided in the midline and the anterior peritoneum was entered. An Steven self-retaining retractor was placed. The vesicouterine peritoneum was taken down and a transverse hysterotomy incision was made and bluntly extended bilaterally. The bag of water was artificially ruptured for twin A. The head was delivered. The rest of the body was delivered. Resuscitation and neonatology was there to provide care. A 45-second cord clamping delay was accomplished before clamping and cutting the cord and a double cord segment was taken for cord blood analysis. Twin B was approached in a similar manner, also with clear fluid, born cephalic with neonatology resuscitation and a 45-second cord clamping delay, also with cord blood gases. The placenta was delivered spontaneously and the endometrial cavity was curetted with a moist laparotomy sponge. The hysterotomy incision was repaired using a double-layer closure of #1 chromic. Good hemostasis was noted. Counts were correct x3. The muscles were plicated together in the midline using a #1 chromic suture. The fascia was closed with a #1 PDS. The subcutaneous tissue was closed with a running suture of 3-0 plain gut and subcuticular suture of 4-0 Monocryl was placed in the skin. The patient tolerated the procedure well. She has taken back to the recovery room in good condition. Reginald Lewis MD LH/BT /12:25 AM /7:43 AM
[2017-08-08] MEDS: POTASSIUM CHLORIDE 10 MEQ CAP PO SCH ×2 (08:56→20:32)
[2017-08-08] MEDS: LABETALOL HCL 200 MG TAB PO SCH ×2 (08:56→20:37)
--- NOTE | 2017-08-08 09:33 | RADRPT ---
EXAM DATE/TIME: 08/08/2017 09:21 [place] COMPARISON: CHEST SINGLE AP, August 07, 2017, 10:44. INDICATIONS : Congestion and short of breath. MEDICAL HISTORY : Hypertension. SURGICAL HISTORY : section. ENCOUNTER: Subsequent ACUITY: 2 days PAIN SCORE: 0/10 LOCATION: Bilateral chest FINDINGS: Frontal and lateral views of the chest demonstrate cardiac silhouette size at the upper limits for no rmal. Lungs are mildly underinflated with interstitial opacities bilaterally. No pleural effusion or pneumothorax is identified. The bones and soft tissues demonstrate no acute abnormality. CONCLUSION: Stable chest x-ray with abnormal interstitial opacities bilaterally. Although nonspecific, pulmonary edema could have this appearance. Eliot Hyman MD on August 08, 2017 at 9:30 Board Certified Radiologist. This report was verified electronically.
[2017-08-08] MEDS ORDERED: DIPHTH/TETANUS/ACEL PERTUSSIS (BOOSTER) 0.5 ML VIAL/PFS IM ONE (16:00)
[2017-08-08] MEDS ORDERED: MEASLES, MUMPS, RUBELLA VACCINE 0.5 ML VIAL SQ ONE (16:00)
[2017-08-08] MEDS: SODIUM CHLORIDE 0.9% FLUSH 5 ML FLUSH IV SCH (21:00)
[2017-08-08] MEDS: SODIUM CHLORIDE 0.9% FLUSH 10 ML FLUSH IV FLUSH SCH (21:37)
[2017-08-08] MEDS: LACTATED RINGER'S 1000 ML INJ 1,000 ML IV SCH (21:37)
[2017-08-08] MEDS ORDERED: NIFEdipine 20 MG CAP PO ONE (22:30)
[2017-08-08] MEDS ORDERED: NIFEdipine 20 MG CAP PO PRN (23:00)
[2017-08-08] MEDS ORDERED: NIFEdipine 10 MG CAP PO PRN (23:00)
[2017-08-08] MEDS ORDERED: CALCIUM GLUCONATE 10% 1 GM/10 ML VIAL IV PUSH PRN (23:00)
[2017-08-09] MEDS: oxyCODONE/ACETAMINOPHEN 5 MG/325 MG TAB PO PRN (01:37)
[2017-08-09 02:37] VITALS: RESP 16
[2017-08-09] MEDS: ACETAMINOPHEN 325 MG TAB PO PRN ×2 (05:34→10:16)
[2017-08-09] MEDS: IBUPROFEN 600 MG TAB PO PRN (05:34)
--- NOTE | 2017-08-09 08:39 | HHI.OB ---
Subjective Post Operative Day: 3 Remarks Pt seen and examined this morning. Post operative day #3 AFVSS overnight. Incision not draining. Decreased lochia. Denies dysuria. No breast tenderness. She is feeding the babies via bottle. Appetite good. No nausea or vomiting. Patient has not had a bowel movement or had bowel gas. Ambulating well. Denies calf pain or shortness of breath. Otherwise, she is doing well this morning and has no other concerns. Objective Vitals/I&O Vital Signs Date Time Temp Pulse Resp B/P (MAP) Pulse Ox O2 Delivery O2 Flow Rate FiO2 08/09/17 02:37 16 08/08/17 22:12 16 Result Diagram: 08/08/1751808/08/17518 Objective Remarks GENERAL: Well-nourished, well-developed patient. CARDIOVASCULAR: Normal s1 and S2. Regular rate and rhythm without murmurs, gallops, or rubs. RESPIRATORY: CTAB with no CRW. Slightly prolonged expiration, but improved from prior exams. ABDOMEN/GI: Abdomen soft, slight tenderness on lower abdomen, bowel sounds present. Incision: Clean, dry and intact. Fundus: Firm, non-tender at umbilicus. GENITOURINARY: Light to moderate bleeding. EXTREMITIES: No cyanosis or edema, non-tender, without signs of DVT. Medications and IVs Current Medications Medications (Trade) Dose Ordered Sig/Dilshad Route Start Time Stop Time Status Last Admin (Tylenol) 650 mg Q4H PRN PO 08/03/17 05:15 08/09/17 05:34 (Ambien) 5 mg HS PRN PO 08/03/17 05:15 08/05/17 21:17 (Percocet 5-325 Mg) 1 tab Q4H PRN PO 08/03/17 05:15 08/09/17 01:37 (Percocet 5-325 Mg) 2 tab Q4H PRN PO 08/03/17 05:30 08/08/17 06:37 (Milk Of Magnesia Liq) 30 ml QID PRN PO 08/03/17 05:30 (Mag-Al Plus Susp Liq) 30 ml QID PRN PO 08/03/17 05:30 (Apresoline Inj) 5 mg Q30M PRN IV 08/03/17 05:30 08/06/17 06:02 (KCl) 10 meq BID PO 08/04/17 09:00 08/08/17 08:56 (Tylenol) 650 mg Q4H PRN PO 08/04/17 11:15 08/04/17 11:50 (Benadryl) 25 mg Q4H PRN PO 08/04/17 11:15 08/04/17 11:50 Lactated Ringer's 1,000 ml @ 75 mls/hr [id number] IV 08/06/17 20:00 08/07/17 13:17 (NS Flush) 2 ml UNSCH PRN IV 08/06/17 20:00 (NS Flush) 2 ml BID IV 08/06/17 21:00 08/07/17 21:00 Magnesium Sulfate 1,000 ml @ 25 mls/hr Q24H IV 08/06/17 19:48 08/07/17 15:23 (Calcium Gluconate Inj) 1 gm UNSCH PRN IV PUSH 08/06/17 20:00 Cefazolin Sodium/ Dextrose 50 ml @ 100 mls/hr [employer] IV 08/06/17 20:00 08/10/17 19:59 08/06/17 21:16 (NS Flush) 2 ml BID IV FLUSH 08/07/17 09:00 (NS Flush) 2 ml UNSCH PRN IV FLUSH 08/07/17 00:15 (Mylicon Chew) 80 mg QID PRN PO 08/07/17 00:15 (Motrin) 600 mg Q6H PRN PO 08/07/17 00:15 08/09/17 05:34 (Percocet 5-325 Mg) 1 tab Q4H PRN PO 08/07/17 00:15 (Percocet 5-325 Mg) 2 tab Q4H PRN PO 08/07/17 00:15 (Lexy-Colace) 2 tab Q12H PRN PO 08/07/17 00:15 08/08/17 08:59 (Zofran Inj) 4 mg Q6H PRN IV PUSH 08/07/17 00:15 (Trandate) 200 mg Q12HR PO 08/07/17 21:00 08/08/17 20:37 (Procardia) 10 mg NOW PRN PO 08/08/17 23:00 08/10/17 22:59 (Procardia) 20 mg NOW PRN PO 08/08/17 23:00 08/10/17 22:59 (Calcium Gluconate Inj) 1 gm UNSCH PRN IV PUSH 08/08/17 23:00 Assessment/Plan Problem List: (1) , high-risk ICD Codes: O09.90 - Supervision of high risk , unspecified, unspecified trimester Status: Resolved Qualifiers: Qualified Codes: O09.93 - Supervision of high risk , unspecified, third trimester (2) Pre-eclampsia in third trimester ICD Codes: O14.93 - Unspecified pre-eclampsia, third trimester Status: Acute (3) Twin gestation in third trimester ICD Codes: O30.003 - Twin , unspecified number of placenta and unspecified number of amniotic sacs, third trimester Status: Resolved Qualifiers: Qualified Codes: O30.033 - Twin , monochorionic/diamniotic, third trimester (4) IUGR, ICD Codes: P05.9 - [place] affected by slow intrauterine growth, unspecified Status: Resolved (5) delivery delivered ICD Codes: O82 - Encounter for delivery without indication Assessment and Plan 37yo who is POD #3 mono/di twins s/p due to uncontrolled elevated BPs. 1. S/p POD #3 -Continue routine care. -Percocet and Motrin PRN pain. -Encouraged OOB. Advised pelvic rest for 6 wks. Will need a f/u appt. in 1-2 wks for incision check. -c/w benadryl 25mg IV push Q6h PRN for itchiness 2. PRE-ECLAMPSIA Normal testing on 08/01/2017 Pt was noted to have elevated SBP in 170s 08/05: CBC-platelets (325) and CMP-- LFTs (AST- 13 and ALT-13) 08/06: CBC-platelets (342) and CMP-- LFTs (AST-16 and ALT-16) Patient received Betamethasone 24 hour urine protein is 364mg 08-04-2017 pt started on mag 2 g after c/s Pt is asymptomatic. Increase labetalol 200mg PO BID as BP has remained elevated Patient given one PRN dose of Procardia overnight 08/08 3. ANEMIA, resolved Initial Hgb 7.8g/dL Transfused 2 units PRBCs on 08/04 H&H 9.7/27 after 2U H/H stable-- 08/06 ( 9.8/28.6) 3.HYPOKALEMIA PO replacement 08/04 (50MEQ x 1, with daily repletion ordered) Repeat CMP-- K 3.1 on 08/05. K-- 3.5 on 08/06 will continue to monitor 4. Respiratory Distress Please see progress note from 08/07 for event Patient administered 40mg Lasix with improvement CXR 08/07: Cardiomegaly with BL patchy airspace disease. DDx includes edema and infection. CXR 08/08: Stable CXR with abnormal interstitial opacities BL. Although, nonspecific pulmonary edema could have this appearance. Pulmonology consulted, appreciate recommendations, to follow up as outpatient next week per nursing staff DC: Today with Pulmonology and OBGYN follow up next week. Patient to continue Labetalol 200mg BID. Patient states she would like to be discharged home and is agreeable to the medical plan. All questions answered dw Dr. Teodoro MD Discharge Planning Likely today with OBGYN and Pulmonology follow up next week Clayton Milton MD R2 Aug 09, 2017 08:39
[2017-08-09] MEDS ORDERED: LABE200T2 PO (08:42)
[2017-08-09] MEDS ORDERED: SENN1TAB PO (08:42)
[2017-08-09] MEDS ORDERED: IBUP-232 PO (08:42)
[2017-08-09] MEDS ORDERED: OXYC1TAB63 PO (08:42)
--- NOTE | 2017-08-09 08:42 | HHI.DCPOC ---
Discharge Care Plan Diagnosis: (1) delivery delivered (2) Pre-eclampsia in third trimester (3) Twin gestation in third trimester Report Symptoms to Your Doctor -Temperature above 100.5 degrees -Redness, of incision or excessive or foul smelling drainage -Unusual pain or calf pain -Increased vaginal bleeding -Painful or difficulty urinating -Feelings of extreme sadness or anxiety after 2 weeks Goals to Promote Your Health * To prevent worsening of your condition and complications * To maintain your health at the optimal level Directions to Meet Your Goals Take your medications as prescribed Follow your dietary instruction Follow activity as directed Ensure plenty of rest for recovery Drink fluids for hydration Keep your appointments as scheduled Take your immunizations and boosters as scheduled If your symptoms worsen call your PCP, if no PCP go to Urgent Care Center or Emergency Room Smoking is Dangerous to Your Health. Avoid second hand smoke Call the 24-hour crisis hotline for domestic abuse at Clayton Milton MD R2 Aug 09, 2017 08:42
[2017-08-09] MEDS: LABETALOL HCL 200 MG TAB PO SCH (08:53)
[2017-09-12] MEDS ORDERED: MEDR150I IM (09:20)
== END 2017-08-09 11:02 | disposition home or self-care (01) | DRG 765 ==
LOC: HOBED 02:30 → H2EA 03:51 → OBSVTOIN 08-06 09:05 → H1EA 08-07 23:28
PROVIDERS: ADMIT Obstetrics & Gynecology Maternal & Fetal Medicine; ATTEND Obstetrics & Gynecology Maternal & Fetal Medicine
PROC: 10D00Z1 Extraction of Products of Conception, Low, Open Approach (ICD-10-PCS; principal; 2017-08-06)
DX: O30.033 Twin pregnancy, monochorionic/diamniotic, third trimester (principal); O99.42 Diseases of the circulatory system complicating childbirth; Q21.0 Ventricular septal defect; O36.5930 Maternal care for other known or suspected poor fetal growth, third trimester, not applicable or unspecified; O36.5931 Maternal care for other known or suspected poor fetal growth, third trimester, fetus 1; Z37.2 Twins, both liveborn; O99.02 Anemia complicating childbirth; Z3A.29 29 weeks gestation of pregnancy; O14.14 Severe pre-eclampsia complicating childbirth; D64.9 Anemia, unspecified; O99.284 Endocrine, nutritional and metabolic diseases complicating childbirth; E87.6 Hypokalemia; I51.7 Cardiomegaly
CPT/HCPCS: 36430; 36600; 71010; 71020; 76816; 76819; 76820; 76821; 80048; 80053; 80076; 81001; 82565; 82570; 82805; 83735; 84112; 84157; 84450; 84550; 85025; 85027; 86850; 86900; 86901; 86920; 87086; 88307; 90715; 94150; 94762; J0131; J0360; J0690; J0702; J1200; J1940; J2250; J2274; J2405; J2590; J3010; J3475; J7050; J7120; P9016

== ENCOUNTER 2017-09-20 10:21 | Inpatient (IN) | payer MEDICAID ==
[~2017-09-20] VITALS: Ht 147.3 cm; Wt 60.4 kg
[2017-09-20] VITALS (11 sets, daily range): BP systolic 144–165; BP diastolic 92–128; PULSE 81–96; RESP 16–20; TEMP 98.1–99.3; O2SAT 96–97
[~2017-09-20 10:21] MED LIST changes: -ASPI81CH CHEW; +MEDR150I IM; -PREN1CAP7 PO; -PREN1CHW7 PO; -TUMS500C CHEW
[2017-09-20] MEDS ORDERED: IOHEXOL 350 MG/ML 10 ML VIAL (for RAD DIAG) IVCONTRAST ONE (10:22)
[2017-09-20] MEDS ORDERED: LABE200T2 PO (11:37)
--- NOTE | 2017-09-20 11:42 | PD ---
HPI Chief Complaint: Hypertension Time Seen by Provider: 11:42 Travel History International Travel<30 days: No Contact w/Intl Traveler<30days: No Traveled to known affect area: No History of Present Illness HPI 37-year-old female 6 days 3 days is sent to the emergency department from labor and delivery with ongoing hypertensive readings with complaints of sharp epigastric central chest pain with exertion which has developed over the last 3 days. Patient denies cough, fever, or chills. She denies abdominal pain. She denies lower extremity cramps or edema. Patient is currently on labetalol 200 mg. Blood pressure is running the 160s over 110. Patient states she is pain-free when she is at rest. Patient is not breast- feeding. Her baby is in the NICU. She has no known drug allergies. [facility] Past Medical History Cardiovascular Problems: Yes (HTN DURING ) Diabetes: Yes (GESTATIONAL DIABETES) ?: Not LMP: 08/2017 Social History Alcohol Use: No Tobacco Use: No Substance Use: No Allergies-Medications (Allergen,Severity, Reaction): Coded Allergies: No Known Allergies (Unverified Adverse Reaction, Unknown, 09/20/17) Reported Meds & Prescriptions Reported Meds & Active Scripts Active Medroxyprogesterone Inj 150 Mg/Ml Inj 150 Mg IM ONCE Reported Labetalol (Labetalol HCl) 200 Mg Tab 200 Mg PO BID Review of Systems General / Constitutional: No: Fever, Chills Eyes: No: Visual changes HENT: No: Headaches Cardiovascular: Positive: Chest Pain or Discomfort, Dyspnea on exertion, No: Palpitations, Irregular Rhythm, Tachycardia, Diaphoresis, Syncope, Varicosities , Edema, Varicosities, Phlebitis, Claudication Respiratory: Positive: Shortness of Breath (with exertion), No: Cough, Wheezing Gastrointestinal: No: Nausea, Vomiting, Diarrhea, Abdominal Pain Genitourinary: No: Dysuria Musculoskeletal: No: Pain Skin: No Rash Neurologic: No: Weakness Psychiatric: No: Depression Endocrine: No: Polydipsia Hematologic/Lymphatic: No: Easy Bruising Physical Exam Narrative GENERAL: Patient appears in no acute distress. SKIN: Warm and dry. Normal color. Normal turgor. HEAD: Atraumatic. Normocephalic. EYES: Pupils equal and round. No scleral icterus. No injection or drainage. ENT: No nasal bleeding or discharge. Mucous membranes pink and moist. Pharynx is clear. Airway is patent. NECK: Trachea midline. Supple nontender. CARDIOVASCULAR: Regular rate and rhythm. No murmurs gallops or rubs appreciated. RESPIRATORY: No accessory muscle use. Clear to auscultation. Breath sounds equal bilaterally. GASTROINTESTINAL: Abdomen soft, non-tender, nondistended. Hepatic and splenic margins not palpable. MUSCULOSKELETAL: Extremities without clubbing, cyanosis, or edema. No obvious deformities. Negative Homans sign. No edema. NEUROLOGICAL: Awake and alert. No obvious cranial nerve deficits. Motor grossly within normal limits. Five out of 5 muscle strength in the arms and legs. Normal speech. PSYCHIATRIC: Appropriate mood and affect; insight and judgment normal. Data Data Last Documented VS Vital Signs Date Time Temp Pulse Resp B/P (MAP) Pulse Ox O2 Delivery O2 Flow Rate FiO2 09/20/17 13:50 81 17 144/97 (113) 97 09/20/17 13:24 Room Air 09/20/17 11:18 99.3 Orders Orders Electrocardiogram (09/20/17 11:45) Ckmb (Isoenzyme) Profile (09/20/17 11:45) Complete Blood Count With Diff (09/20/17 11:45) Comprehensive Metabolic Panel (09/20/17 11:45) Magnesium (Mg) (09/20/17 11:45) Prothrombin Time / Inr (Pt) (09/20/17 11:45) Act Partial Throm Time (Ptt) (09/20/17 11:45) Troponin I (09/20/17 11:45) Chest, Single Ap (09/20/17 11:45) Ecg Monitoring (09/20/17 11:45) Bilateral Bp Monitoring (09/20/17 11:45) Iv Access Insert/Monitor (09/20/17 11:45) Oximetry (09/20/17 11:45) Oxygen Administration (09/20/17 11:45) Aspirin Chew (Aspirin Chew) (09/20/17 11:45) Morphine Inj (Morphine Inj) (09/20/17 11:45) Sodium Chloride 0.9% Flush (Ns Flush) (09/20/17 11:45) Metoprolol Tartrate Inj (Lopressor Inj) (09/20/17 11:45) Ct Pulmonary Angiogram (09/20/17 11:45) Nitroglycerin 2% Oint (Nitroglycerin 2% (09/20/17 12:30) Iohexol 350 Inj (Omnipaque 350 Inj) (09/20/17 10:22) Admit Order (Ed Use Only) (09/20/17 14:13) Labs Laboratory Tests Test 09/20/17 11:45 White Blood Count 8.3 TH/MM3 Red Blood Count 4.39 MIL/MM3 Hemoglobin 13.1 GM/DL Hematocrit 39.6 % Mean Corpuscular Volume 90.2 FL Mean Corpuscular Hemoglobin 29.8 PG Mean Corpuscular Hemoglobin Concent 33.0 % Red Cell Distribution Width 14.9 % Platelet Count 270 TH/MM3 Mean Platelet Volume 8.5 FL Neutrophils (%) (Auto) 63.7 % Lymphocytes (%) (Auto) 26.8 % Monocytes (%) (Auto) 6.8 % Eosinophils (%) (Auto) 1.6 % Basophils (%) (Auto) 1.1 % Neutrophils # (Auto) 5.3 TH/MM3 Lymphocytes # (Auto) 2.2 TH/MM3 Monocytes # (Auto) 0.6 TH/MM3 Eosinophils # (Auto) 0.1 TH/MM3 Basophils # (Auto) 0.1 TH/MM3 CBC Comment DIFF FINAL Differential Comment Prothrombin Time 11.1 SEC Prothromb Time International Ratio 1.0 RATIO Activated Partial Thromboplast Time 25.8 SEC Blood Urea Nitrogen 13 MG/DL Creatinine 0.50 MG/DL Random Glucose 82 MG/DL Total Protein 6.8 GM/DL Albumin 3.3 GM/DL Calcium Level 8.8 MG/DL Magnesium Level 1.6 MG/DL Alkaline Phosphatase 67 U/L Aspartate Amino Transf (AST/SGOT) 22 U/L Alanine Aminotransferase (ALT/SGPT) 37 U/L Total Bilirubin 0.3 MG/DL Sodium Level 141 MEQ/L Potassium Level 3.7 MEQ/L Chloride Level 109 MEQ/L Carbon Dioxide Level 21.8 MEQ/L Anion Gap 10 MEQ/L Estimat Glomerular Filtration Rate 140 ML/MIN Total Creatine Kinase 38 U/L Troponin I 0.02 NG/ML [facility] Medical Decision Making Medical Screen Exam Complete: Yes Emergency Medical Condition: Yes Differential Diagnosis hypertension. Possible PE. Chest pain. History of preeclampsia. Cardiac syndrome. Narrative Course Patient is medically stable at time of exam. Vital signs reviewed showing blood pressure of 1 6110. Heart rate is 95. O2 sat is 97%. Labs ordered including CBC, CMP, PT PTT and INR, and cardiac panel. CTA of the chest is ordered with contrast. Patient is given 2 mg morphine IM as well as 324 mg aspirin by mouth. Patient is given metoprolol 5 mg 3 per chest pain protocol. Patient is given 1 inch of 2% nitroglycerin paste. EKG shows sinus rhythm with moderate T wave inversions in the lateral leads. Anterior septal myocardial infarction cannot be ruled out. As reviewed with Dr. Patel CBC is unremarkable. CMP is unremarkable with first troponin less than 0.02. Coagulation studies are normal. CTA shows: CONCLUSION: 1. No evidence of pulmonary embolism. 2. Marked cardiomegaly. 3. Hepatosplenomegaly. 4. Scattered atelectatic changes bilaterally. 5. Small right pleural effusion and tiny left pleural effusion. After the second dose of metoprolol 5 mg IV and 1 inch of nitroglycerin 2% paste , the patient has blood pressure of 152/94. Patient remains pain-free. Patient is given a third dose of metoprolol 5 mg IV. Patient discussed with Dr. Patel feels the patient is having hypertensive urgency, and warrants medical admission. Call was placed to the hospitalist for admission. Patient was discussed with Dr. Michelle, who accepted the patient for admission. Diagnosis Primary Impression: Hypertensive urgency Admitting Information Admitting Physician Requests: Admit Condition: Stable Brent Leone Sep 20, 2017 11:42
[2017-09-20] MEDS ORDERED: SODIUM CHLORIDE 0.9% FLUSH 10 ML FLUSH IVF PRN (11:45)
[2017-09-20] MEDS ORDERED: ASPIRIN 81 MG CHEW TAB PO ONE (11:45)
[2017-09-20] MEDS ORDERED: MORPHINE SULFATE 4 MG/ML INJ IV PUSH ONE (11:45)
[2017-09-20] MEDS: METOPROLOL TARTRATE 5 MG/5 ML VIAL IVS SCH ×4 (11:57→13:53)
[2017-09-20 12:18] LABS: AUTOMATED NEUTROPHIL # 5.3 TH/MM3 (1.8-7.7); BASOPHIL # 0.1 TH/MM3 (0-0.2); BASOPHIL % 1.1 % (0.0-2.0); EOSINOPHIL # 0.1 TH/MM3 (0-0.4); EOSINOPHIL % 1.6 % (0.0-4.0); HEMATOCRIT 39.6 % (35.0-46.0); HEMOGLOBIN 13.1 GM/DL (11.6-15.3); LYMPH % 26.8 % (9.0-44.0); LYMPHOCYTE # 2.2 TH/MM3 (1.0-4.8); MEAN CELL VOLUME 90.2 FL (80.0-100.0); MEAN CORPUSCULAR HEMOGLOBIN 29.8 PG (27.0-34.0); MEAN PLATELET VOLUME 8.5 FL (7.0-11.0); MONO % 6.8 % (0.0-8.0); MONOCYTE # 0.6 TH/MM3 (0-0.9); NEUT % 63.7 % (16.0-70.0); PLATELET COUNT 270 TH/MM3 (150-450); RED BLOOD COUNT 4.39 MIL/MM3 (4.00-5.30); RED CELL DISTRIBUTION WIDTH 14.9 % (11.6-17.2); WHITE BLOOD COUNT 8.3 TH/MM3 (4.0-11.0)
[2017-09-20 12:26] LABS: PROTHROMBIN TIME - PATIENT 11.1 SEC (9.8-11.6)
[2017-09-20] MEDS ORDERED: NITROGLYCERIN 2% OINT 1 GM PACKET TOPICAL ONE (12:30)
[2017-09-20 12:38] LABS: ALBUMIN 3.3 GM/DL (3.4-5.0); ALT (GPT) 37 U/L (10-53); AST (GOT) 22 U/L (15-37); BICARBONATE 21.8 MEQ/L (21.0-32.0); BLOOD UREA NITROGEN 13 MG/DL (7-18); CALCIUM 8.8 MG/DL (8.5-10.1); CHLORIDE 109 MEQ/L (98-107); GLOMERULAR FILTRATION RATE 140 ML/MIN (>89); GLUCOSE,RANDOM 82 MG/DL (74-106); MAGNESIUM 1.6 MG/DL (1.5-2.5); SODIUM (NA) 141 MEQ/L (136-145)
--- NOTE | 2017-09-20 12:38 | RADRPT ---
EXAM DATE/TIME: 09/20/2017 11:47 [facility] COMPARISON: CHEST PA & LAT, August 08, 2017, 9:21. INDICATIONS : Pain in middle of chest, high blood pressure for about 4 days, gave to twins in July MEDICAL HISTORY : None. SURGICAL HISTORY : section. ENCOUNTER: Initial ACUITY: 4 - 6 days PAIN SCORE: 9/10 LOCATION: Bilateral chest FINDINGS: Heart size upper limits of normal. Mild hazy parenchymal opacities are seen in both lung bases, left slightly more so than right, probably mild pneumonia versus mild failure. No dense consolidation seen . No large effusion. No pneumothorax. CONCLUSION: Mild edema versus early/mild basilar pneumonia. Eliot Crawford MD on September 20, 2017 at 12:36 Board Certified Radiologist. This report was verified electronically.
[2017-09-20 12:41] LABS: ALKALINE PHOSPHATASE 67 U/L (45-117); TOTAL BILIRUBIN ADULT 0.3 MG/DL (0.2-1.0); TOTAL PROTEIN 6.8 GM/DL (6.4-8.2); TROPONIN I 0.02 NG/ML (0.02-0.05)
--- NOTE | 2017-09-20 13:32 | RADRPT ---
EXAM DATE/TIME: 09/20/2017 13:07 [facility] COMPARISON: No previous studies available for comparison. INDICATIONS : Hypertensive with chest pains with exertion, six weeks . IV CONTRAST: 73 cc Omnipaque 350 (iohexol) IV RADIATION DOSE: 23.02 CTDIvol (mGy) MEDICAL HISTORY : Gestational diabetes, HTN during SURGICAL HISTORY : None. ENCOUNTER: Initial ACUITY: 3 days PAIN SCALE: 3/10 LOCATION: Bilateral chest TECHNIQUE: Volumetric scanning of the chest was performed using a pulmonary embolism protocol MIP images were re constructed. Using automated exposure control and adjustment of the mA and/or kV according to patien t size, radiation dose was kept as low as reasonably achievable to obtain optimal diagnostic quality images. DICOM format image data is available electronically for review and comparison. Follow-up recommendations for detected pulmonary nodules are based at a minimum on nodule size and pa tient risk factors according to Fleischner Society Guidelines. FINDINGS: PULMONARY ARTERIES: No filling defects are seen in the pulmonary arteries through the segmental level. LUNGS: There is no consolidation or pneumothorax . Scattered atelectatic changes are noted bilaterally. No concerning pulmonary nodule is visualized. PLEURAE: Small right pleural effusion and tiny left pleural effusion are noted. MEDIASTINUM: There is good visualization of the great vessels of the middle mediastinum. No evidence of mediastin al or hilar adenopathy/mass. Marked cardiomegaly is noted. MUSCULOSKELETAL: Within normal limits for patient age. MISCELLANEOUS: The visualized upper abdominal organs demonstrate no acute abnormality. Hepatosplenomegaly is noted. CONCLUSION: 1. No evidence of pulmonary embolism. 2. Marked cardiomegaly. 3. Hepatosplenomegaly. 4. Scattered atelectatic changes bilaterally. 5. Small right pleural effusion and tiny left pleural effusion. Ferny Jacobs MD on September 20, 2017 at 13:28 Board Certified Radiologist. This report was verified electronically.
[2017-09-20] MEDS ORDERED: SODIUM CHLORIDE 0.9% FLUSH 10 ML FLUSH IV FLUSH PRN (14:15)
[2017-09-20] MEDS ORDERED: NALOXONE HCL 0.4 MG/ML AMP IV PUSH PRN (14:15)
[2017-09-20] MEDS ORDERED: NITROGLYCERIN 0.4 MG SL 25 TABS/BTL SL PRN (14:30)
[2017-09-20] MEDS ORDERED: hydrALAZINE HCL 20 MG/ML VIAL IV PUSH PRN (14:45)
--- NOTE | 2017-09-20 15:08 | HHI.HP ---
[facility] Primary Care Physician No Primary Care Physician Admission Diagnosis Hypertensive Crisis Diagnoses: Travel History International Travel<30 Days: No Contact w/Intl Traveler <30 Da: No Traveled to Known Affected Are: No History of Present Illness hx from patient, ER PA, review of med records 6 weeks 3 days post delivered c section at 29 weeks, twins because of preclampisa bp has been high at home 160s/120s - went to ob today, sent to er no problems with vision at home, but did have headaches at home pt herself was d/marleen from hospital 3 days post on labetalol 200mg bid at home, none else no fever/ no other symptoms did have chest pains on exertion for past 3 days usually when she gets up and walk has chest "pressure" did have sob with chest pressure, was sweating, no nausea, could not walk without being out of breath no radiation to arm or neck no bloody discharge from vagina stopped bleeding about a week ago did have somewhat heavy bleed third , prior babies ok , no miscarriage or Review of Systems Except as stated in HPI: all other systems reviewed are Neg Past Family Social History Past Medical History gestational htn- started with second , did not need to be on meds post then. BUT with twin (her 3rd) had gestational htn and needs meds post gestational dm- but did not do the 2nd test , so not on meds Past Surgical History c section 6 weeks ago Allergies: Coded Allergies: No Known Allergies (Unverified Adverse Reaction, Unknown, 09/20/17) Family History heart problems - grandfather, brother almost everyone has dm, htn, Social History smokes a pack a day - but stated she stopped during only socially once in a while Physical Exam Vital Signs Vital Signs Date Time Temp Pulse Resp B/P (MAP) Pulse Ox O2 Delivery O2 Flow Rate FiO2 09/20/17 13:50 81 17 144/97 (113) 97 09/20/17 13:24 88 20 153/107 (122) 97 Room Air 09/20/17 11:50 97 Room Air 09/20/17 11:50 18 97 Room Air 09/20/17 11:33 88 18 160/111 (127) 97 Room Air 09/20/17 11:30 96 18 97 Room Air 09/20/17 11:18 99.3 90 16 165/128 (140) 97 Physical Exam GENERAL: This is a well-nourished, well-developed patient, in no apparent distress. SKIN: No rashes, ecchymoses or lesions. Cool and dry. HEAD: Atraumatic. Normocephalic. No temporal or scalp tenderness. EYES: No scleral icterus. No injection or drainage. ENT: Nose without bleeding, purulent drainage or septal hematoma. Airway patent. NECK: Trachea midline. No JVD CARDIOVASCULAR: Regular rate and rhythm without murmurs, gallops, or rubs. RESPIRATORY: bilateral basilar crepitations, no néstor rales, equal air entry GASTROINTESTINAL: Abdomen soft, non-tender, nondistended.No guarding. MUSCULOSKELETAL: Extremities without clubbing, cyanosis, or edema. . No calf tenderness. NEUROLOGICAL: Awake and alert. Motor and sensory grossly within normal limits. Normal speech. Laboratory Laboratory Tests Test 09/20/17 11:45 White Blood Count 8.3 Red Blood Count 4.39 Hemoglobin 13.1 Hematocrit 39.6 Mean Corpuscular Volume 90.2 Mean Corpuscular Hemoglobin 29.8 Mean Corpuscular Hemoglobin Concent 33.0 Red Cell Distribution Width 14.9 Platelet Count 270 Mean Platelet Volume 8.5 Neutrophils (%) (Auto) 63.7 Lymphocytes (%) (Auto) 26.8 Monocytes (%) (Auto) 6.8 Eosinophils (%) (Auto) 1.6 Basophils (%) (Auto) 1.1 Neutrophils # (Auto) 5.3 Lymphocytes # (Auto) 2.2 Monocytes # (Auto) 0.6 Eosinophils # (Auto) 0.1 Basophils # (Auto) 0.1 CBC Comment DIFF FINAL Differential Comment Prothrombin Time 11.1 Prothromb Time International Ratio 1.0 Activated Partial Thromboplast Time 25.8 Blood Urea Nitrogen 13 Creatinine 0.50 Random Glucose 82 Total Protein 6.8 Albumin 3.3 Calcium Level 8.8 Magnesium Level 1.6 Alkaline Phosphatase 67 Aspartate Amino Transf (AST/SGOT) 22 Alanine Aminotransferase (ALT/SGPT) 37 Total Bilirubin 0.3 Sodium Level 141 Potassium Level 3.7 Chloride Level 109 Carbon Dioxide Level 21.8 Anion Gap 10 Estimat Glomerular Filtration Rate 140 Total Creatine Kinase 38 Troponin I 0.02 Result Diagram: 09/20/17 1145 09/20/17 114 Imaging Last 48 hours Impressions Chest X-Ray 09/20/17 114 Signed Impressions: Service Date/Time: September 11:47 - CONCLUSION: Mild edema versus early/mild basilar pneumonia. Eliot Crawford MD CT Angiography 09/20/171144 Signed Impressions: Service Date/Time: September 13:07 - CONCLUSION: 1. No evidence of pulmonary embolism. 2. Marked cardiomegaly. 3. Hepatosplenomegaly. 4. Scattered atelectatic changes bilaterally. 5. Small right pleural effusion and tiny left pleural effusion. MD Hector Loza VTE Risk Assessment Caprini VTE Risk Assessment: Mod/High Risk (score >= 2) Caprini Risk Assessment Model Point Value = 1 Point Value = 2 Point Value = 3 Point Value = 5 Age 41-60 Minor surgery BMI > 25 kg/m2 Swollen legs Varicose veins or History of unexplained or recurrent spontaneous Oral contraceptives or hormone replacement Sepsis (< 1 month) Serious lung disease, including pneumonia (< 1 month) Abnormal pulmonary function Acute myocardial infarction Congestive heart failure (< 1 month) History of inflammatory bowel disease Medical patient at bed rest Age 61-74 Arthroscopic surgery Major open surgery (> 45 min) Laparoscopic surgery (> 45 min) Malignancy Confined to bed (> 72 hours) Immobilizing plaster cast Central venous access Age >= 75 History of VTE Family history of VTE Factor V Leiden Prothrombin [id number] Lupus anticoagulant Anticardiolipin antibodies Elevated serum homocysteine Heparin-induced thrombocytopenia Other congenital or acquired thrombophilia Stroke (< 1 month) Elective arthroplasty Hip, pelvis, or leg fracture Acute spinal cord injury (< 1 month) Prophylaxis Regimen Total Risk Factor Score Risk Level Prophylaxis Regimen 0-1 Low Early ambulation 2 Moderate Order ONE of the following: *Sequential Compression Device (SCD) *Heparin 5000 units SQ BID 3-4 Higher Order ONE of the following medications: *Heparin 5000 units SQ TID *Enoxaparin/Lovenox 40 mg SQ daily (WT < 150 kg, CrCl > 30 mL/min) *Enoxaparin/Lovenox 30 mg SQ daily (WT < 150 kg, CrCl > 10-29 mL/min) *Enoxaparin/Lovenox 30 mg SQ BID (WT < 150 kg, CrCl > 30 mL/min) AND/OR *Sequential Compression Device (SCD) 5 or more Highest Order ONE of the following medications: *Heparin 5000 units SQ TID (Preferred with Epidurals) *Enoxaparin/Lovenox 40 mg SQ daily (WT < 150 kg, CrCl > 30 mL/min) *Enoxaparin/Lovenox 30 mg SQ daily (WT < 150 kg, CrCl > 10-29 mL/min) *Enoxaparin/Lovenox 30 mg SQ BID (WT < 150 kg, CrCl > 30 mL/min) AND *Sequential Compression Device (SCD) Assessment and Plan Assessment and Plan Impression: hypertensive urgency chest pain- unstable angina vs hypertensive urgency related post 6 weeks 3 days with hx of preclampsia hepatosplenomegaly Plan: resume labetalol hydralazine 10mg iv q3hr prn for bp>140/80 serial cardiac enzymes and ekg echo cardio eval OB eval monitor BP closely bnp will consider lasix also would give lovenox therapeutic dose as pt has t inversions on ekg lateral leads dvt prophylaxis with lovenox Discussed Condition With patient, ER PA, nursing staff Physician Certification 2 Midnight Certification Type: Admission for Inpatient Services Order for Inpatient Services The services are ordered in accordance with Medicare regulations or non- Medicare payer requirements, as applicable. In the case of services not specified as inpatient-only, they are appropriately provided as inpatient services in accordance with the 2-midnight benchmark. Estimated LOS (days): 2 days is the estimated time the patient will need to remain in the hospital, assuming treatment plan goals are met and no additional complications. Post-Hospital Plan: Home Mone Michelle MD Sep 20, 2017 15:08
[2017-09-20] MEDS: ENOXAPARIN SODIUM 60 MG/0.6 ML SYRINGE SQ SCH (18:00)
[2017-09-20] MEDS ORDERED: FUROSEMIDE 40 MG/4 ML VIAL IV PUSH ONE (18:45)
[2017-09-20] MEDS ORDERED: POTASSIUM CHLORIDE 20 MEQ CONTROLLED RELEASE TAB PO ONE (18:45)
[2017-09-20 19:22] LABS: TROPONIN I 0.02 NG/ML (0.02-0.05)
[2017-09-20] MEDS ORDERED: IBUPROFEN 400 MG TAB PO ONE (21:00)
[2017-09-20] MEDS: cloNIDine HCL 0.1 MG TAB PO SCH (21:16)
[2017-09-20] MEDS: LABETALOL HCL 200 MG TAB PO SCH (21:17)
[2017-09-20] MEDS: SODIUM CHLORIDE 0.9% FLUSH 10 ML FLUSH IV FLUSH SCH (21:18)
[2017-09-20] MEDS: HYDROCHLOROTHIAZIDE 25 MG TAB PO SCH (21:26)
--- NOTE | 2017-09-20 22:44 | MB ---
cc: NANCY MALDONADO DATE OF CONSULTATION 09/20/17 DATE OF 1980 REASON FOR CONSULTATION Uncontrolled hypertension. HISTORY OF PRESENT ILLNESS 37-year-old female, , in the setting of premature ___ secondary to preeclampsia. Sent to the emergency department with uncontrolled blood pressure and complains of epigastric central chest pain on exertion for the last 3 days. Denies fever, cough, chills, nausea, vomiting or diarrhea. The patient currently on Labetalol 200 mg for hypertension at home. Cardiology consulted for further cardiac workup. PAST MEDICAL HISTORY Gestational hypertension, smoker. PAST SURGICAL HISTORY 6 weeks ago. ALLERGIES NO KNOWN DRUG ALLERGIES. FAMILY HISTORY Heart problems grandfather and brother. Almost everyone has diabetes and hypertension. SOCIAL HISTORY She is a smoker. Denies illicit drug use or alcohol abuse. PHYSICAL EXAMINATION VITAL SIGNS: Temperature 98, respiratory rate 18, heart rate 88, blood pressure 160/99, O2 sat 97% room air. GENERAL: Generally, awake, alert, oriented x3, in no acute distress. NECK: No JVD or carotid bruit. HEART: Regular rate and rhythm. No murmurs, rubs or gallops. LUNGS: Clear to auscultation bilaterally. No wheezing, rhonchi or rales. ABDOMEN: Soft, nontender, nondistended. Positive bowel sounds. EXTREMITIES: No cyanosis or edema. Pulses throughout. DATA CBC hemoglobin 13, hematocrit 39, platelet count 270, INR 1. Chemistries, sodium 141, potassium 3.7, BUN 13, creatinine 0.50. BNP 1987. Troponin, negative 0.02. There is no recent urinalysis. The last urinalysis was on August 03, 2017. There is no signs of proteinuria. IMAGING STUDIES CTA no evidence of pulmonary emboli. There is marked cardiomegaly and hepatosplenomegaly. CARDIOLOGY STUDIES EKG sinus rhythm with T-wave inversions in the lateral leads. Echocardiogram has been ordered, however, it has not been done. ASSESSMENT/PLAN 37-year-old female admitted with uncontrolled hypertension, history of preeclampsia and symptoms of shortness of breath and chest pain. Currently she remains afebrile and hemodynamically stable, no signs or renal failure, proteuria or neurological deficits. Blood pressure has been managed with IV medications in the emergency department, however still not controlled. At this point I would continue optimization of blood pressure medications. Options for her post include methyldopa, beta blockers, calcium channel blockers, hydralazine, HCTZ diuretics and clonidine. At this point I will continue the Labetalol, start hydrochlorothiazide 25mg PO daily and would consider clonidine 0.1mg PO BID if blood pressure does not get better. Follow results of echocardiogram to assess LV systolic function. If she indeed has a cardiomyopathy usually they tends to go improved. However Cardiology follow up is highly recommend. Thank you for the opportunity to participate in the care of this patient. Will be available on a p.r.n. basis for any other questions or concerns. MD ELVIE Busby/EO /6:51 PM /10:15 PM [facility]
[2017-09-21] VITALS: BP 138/94; PULSE 72; RESP 17; TEMP 97.7; O2SAT 95
[2017-09-21 00:34] LABS: TROPONIN I 0.02 NG/ML (0.02-0.05)
[2017-09-21 04:00] VITALS: BP 104/64; PULSE 77; RESP 19; TEMP 98.1; O2SAT 96
[2017-09-21] MEDS: ENOXAPARIN SODIUM 60 MG/0.6 ML SYRINGE SQ SCH (05:10)
[2017-09-21] MEDS ORDERED: ACETAMIN 325 MG/BUTALBITAL 50 MG/CAFFEINE 40 MG TAB PO ONE (05:30)
[2017-09-21 08:18] LABS: AUTOMATED NEUTROPHIL # 4.2 TH/MM3 (1.8-7.7); BASOPHIL % 0.7 % (0.0-2.0); EOSINOPHIL # 0.2 TH/MM3 (0-0.4); EOSINOPHIL % 2.9 % (0.0-4.0); HEMATOCRIT 38.9 % (35.0-46.0); LYMPH % 22.4 % (9.0-44.0); LYMPHOCYTE # 1.4 TH/MM3 (1.0-4.8); MEAN CELL VOLUME 89.2 FL (80.0-100.0); MEAN CORPUSCULAR HEMOGLOBIN 29.9 PG (27.0-34.0); MEAN CORPUSCULAR HGB CONC 33.5 % (32.0-36.0); MONO % 8.2 % (0.0-8.0); MONOCYTE # 0.5 TH/MM3 (0-0.9); NEUT % 65.8 % (16.0-70.0); PLATELET COUNT 258 TH/MM3 (150-450); RED BLOOD COUNT 4.36 MIL/MM3 (4.00-5.30); RED CELL DISTRIBUTION WIDTH 14.7 % (11.6-17.2); WHITE BLOOD COUNT 6.3 TH/MM3 (4.0-11.0)
[2017-09-21 08:40] LABS: CALCIUM 8.3 MG/DL (8.5-10.1); CREATININE 0.54 MG/DL (0.50-1.00)
[2017-09-21] MEDS ORDERED: LISINOPRIL 20 MG TAB PO SCH (09:00)
[2017-09-21] MEDS: SODIUM CHLORIDE 0.9% FLUSH 10 ML FLUSH IV FLUSH SCH (09:00)
[2017-09-21] MEDS ORDERED: ASPIRIN EC 325 MG TABEC PO SCH (09:00)
--- NOTE | 2017-09-21 09:33 | HHI.PR ---
Subjective Remarks Patient in nad ambulating. no events overnight. Wants to go home. Objective Vitals Vital Signs Date Time Temp Pulse Resp B/P (MAP) Pulse Ox O2 Delivery O2 Flow Rate FiO2 09/21/17 04:00 98.1 77 19 104/64 (77) 96 09/21/17 00:00 97.7 72 17 138/94 (109) 95 09/20/17 20:00 92 09/20/17 20:00 98.4 85 19 148/92 (110) 96 09/20/17 19:00 96 09/20/17 17:45 98.1 88 18 160/99 (119) 97 09/20/17 17:27 09/20/17 17:19 88 20 157/98 (117) 97 Room Air 09/20/17 16:00 90 20 164/115 (131) 97 Room Air 09/20/17 13:50 81 17 144/97 (113) 97 09/20/17 13:24 88 20 153/107 (122) 97 Room Air 09/20/17 11:50 97 Room Air 09/20/17 11:50 18 97 Room Air 09/20/17 11:33 88 18 160/111 (127) 97 Room Air 09/20/17 11:30 96 18 97 Room Air 09/20/17 11:18 99.3 90 16 165/128 (140) 97 I/O 09/20/17 09/20/17 09/20/17 09/21/17 09/21/17 09/21/17 07:00 15:00 23:00 07:00 15:00 23:00 Intake Total 420 ml Output Total 700 ml Balance -280 ml Intake Oral 420 ml Output Urine Total 700 ml # Bowel Movements 0 Result Diagram: 09/21/1772409/21/17724 Imaging Last Impressions Chest X-Ray 09/20/171144 Signed Impressions: Service Date/Time: September 11:47 - CONCLUSION: Mild edema versus early/mild basilar pneumonia. Eliot Crawford MD CT Angiography 09/20/17 114 Signed Impressions: Service Date/Time: September 13:07 - CONCLUSION: 1. No evidence of pulmonary embolism. 2. Marked cardiomegaly. 3. Hepatosplenomegaly. 4. Scattered atelectatic changes bilaterally. 5. Small right pleural effusion and tiny left pleural effusion. Ferny Jacobs MD Objective Remarks GENERAL: This is a well-nourished, well-developed patient, in no apparent distress. NECK: Trachea midline. No JVD CARDIOVASCULAR: Regular rate and rhythm without murmurs, gallops, or rubs. RESPIRATORY: bilateral basilar crepitations, no néstor rales, equal air entry GASTROINTESTINAL: Abdomen soft, non-tender, nondistended.No guarding. MUSCULOSKELETAL: Extremities without clubbing, cyanosis, or edema. . No calf tenderness. NEUROLOGICAL: Awake and alert. Motor and sensory grossly within normal limits. Normal speech. A/P Assessment and Plan Hypertensive urgency , resolved. Chest pain- unstable angina vs hypertensive urgency related Post 6 weeks 3 days with hx of preclampsia Hepatosplenomegaly resume labetalol hydralazine 10mg iv q3hr prn for bp>140/80, give PO at discharge serial cardiac enzymes and ekg at baseline echo to have a sOP if need cardio eval can f/u as OP . BP is better controlled. OB eval monitor BP closely bnp will consider lasix also would give lovenox therapeutic dose as pt has t inversions on ekg lateral leads dvt prophylaxis with lovenox Discussed Condition With patient, nurse Discharge Planning DC home in stable condition to f/u as OP with pCP and consultants. Diet : Patient to have healthy heart diet Activity ad phuc as tolerated Meds per med reconciliation. add hydralazine at DC. Monitor BP Idalia Valdez MD Sep 21, 2017 09:33
[2017-09-21] MEDS ORDERED: LABE200T2 PO (09:35)
[2017-09-21] MEDS ORDERED: HYDR-3801 PO (09:35)
--- NOTE | 2017-09-21 09:35 | HHI.DCPOC ---
Discharge Care Plan Goals to Promote Your Health * To prevent worsening of your condition and complications * To maintain your health at the optimal level Directions to Meet Your Goals Take your medications as prescribed Follow your dietary instruction Follow activity as directed Keep your appointments as scheduled Take your immunizations and boosters as scheduled If your symptoms worsen call your PCP, if no PCP go to Urgent Care Center or Emergency Room Smoking is Dangerous to Your Health. Avoid second hand smoke Call the 24-hour hour crisis hotline for domestic abuse at Idalia Valdez MD Sep 21, 2017 09:35
--- NOTE | 2017-09-21 09:35 | HHI.DCPOC ---
Discharge Care Plan Goals to Promote Your Health * To prevent worsening of your condition and complications * To maintain your health at the optimal level Directions to Meet Your Goals Take your medications as prescribed Follow your dietary instruction Follow activity as directed Keep your appointments as scheduled Take your immunizations and boosters as scheduled If your symptoms worsen call your PCP, if no PCP go to Urgent Care Center or Emergency Room Smoking is Dangerous to Your Health. Avoid second hand smoke Call the 24-hour hour crisis hotline for domestic abuse at Idalia Valdez MD Sep 21, 2017 09:35
--- NOTE | 2017-09-21 09:35 | HHI.DCPOC ---
Discharge Care Plan Goals to Promote Your Health * To prevent worsening of your condition and complications * To maintain your health at the optimal level Directions to Meet Your Goals Take your medications as prescribed Follow your dietary instruction Follow activity as directed Keep your appointments as scheduled Take your immunizations and boosters as scheduled If your symptoms worsen call your PCP, if no PCP go to Urgent Care Center or Emergency Room Smoking is Dangerous to Your Health. Avoid second hand smoke Call the 24-hour hour crisis hotline for domestic abuse at Idalia Valdez MD Sep 21, 2017 09:35
--- NOTE | 2017-09-21 09:52 | EKG ---
Date Performed: 09/20/2017 Time Performed: 12:10:16 PTAGE: 37 years EKG: Sinus rhythm LEFT ATRIAL ENLARGEMENT ANTEROSEPTAL MYOCARDIAL INFARCTION MODERATE T-WAVE ABNORMALITY, CONSIDER LAT ERAL ISCHEMIA ABNORMAL ECG NO PREVIOUS TRACING DOCTOR: Jose De Jesus Wen Interpretating Date/Time 09/21/2017 09:50:34
--- NOTE | 2017-09-21 09:52 | EKG ---
Date Performed: 09/20/2017 Time Performed: 19:06:11 PTAGE: 37 years EKG: Sinus rhythm LEFT ATRIAL ENLARGEMENT ANTEROSEPTAL MYOCARDIAL INFARCTION , PROBABLY RECENT PREVIOUS TRACING : 09/20/2017 12.10 Compared to prior tracing no significant change DOCTOR: Jose De Jesus Wen Interpretating Date/Time 09/21/2017 09:50:51
--- NOTE | 2017-09-21 09:55 | EKG ---
Date Performed: 09/21/2017 Time Performed: 00:10:54 PTAGE: 37 years EKG: Sinus rhythm Possible anteroseptal infarct - age undetermined Possible left ventricular hypertrophy Lateral ST-T changes are probably due to ventricular hypertrophy Abnormal ECG PREVIOUS TRACING : 09/20/2017 19.06 Since prior tracing, T-wave changes are more prominent. DOCTOR: Jose De Jesus Wen Interpretating Date/Time 09/21/2017 09:54:23
[2017-09-21] MEDS: LABETALOL HCL 200 MG TAB PO SCH (09:56)
[2017-09-21] MEDS: HYDROCHLOROTHIAZIDE 25 MG TAB PO SCH (09:56)
[2017-09-21] MEDS: cloNIDine HCL 0.1 MG TAB PO SCH (09:56)
== END 2017-09-21 10:12 | disposition home or self-care (01) | DRG 305 ==
LOC: HOBED 10:21 → NEDA 14:14 → OBSVTOIN 14:41 → N04A 17:28
PROVIDERS: ADMIT Hospitalist; ATTEND Hospitalist
DX: I16.0 Hypertensive urgency (principal); R16.2 Hepatomegaly with splenomegaly, not elsewhere classified; I51.7 Cardiomegaly; F17.210 Nicotine dependence, cigarettes, uncomplicated; Z83.3 Family history of diabetes mellitus; Z86.32 Personal history of gestational diabetes; Z82.49 Family history of ischemic heart disease and other diseases of the circulatory system
CPT/HCPCS: 71010; 71275; 80048; 80053; 82550; 83735; 83880; 84484; 85025; 85610; 85730; 93005; J0360; J1940; J2270; Q9967

== ENCOUNTER 2018-04-26 19:09 | Emergency (ER) | payer MEDICAID ==
[~2018-04-26 19:09] MED LIST changes: +DEPO150I IM; +HYDR-3801 PO; +LABE200T2 PO
[2018-04-26 19:37] VITALS: BP 202/108; PULSE 83; RESP 16; TEMP 99.3; O2SAT 99
[2018-04-26] MEDS ORDERED: IBUP-232 PO (20:13)
[2018-04-26] MEDS ORDERED: CLIN150C14 PO (20:13)
[2018-04-26] MEDS ORDERED: BACT800T5 PO (20:13)
--- NOTE | 2018-04-26 20:14 | PD ---
HPI Chief Complaint: Skin Problem Time Seen by Provider: 19:59 Travel History International Travel<30 days: No Contact w/Intl Traveler<30days: No Traveled to known affect area: No History of Present Illness HPI 37 years old female complains of painful lumps on the right axilla area. Patient states that the symptoms started several days ago. Patient states that she started having drainage and right axilla today. Patient denies any fever chills. Patient states the pain is burning pain sharp pain localized to her axilla. Patient denies any pain radiation. On a scale of 1-10 the pain is a 7. Patient denies any chance of being . PFSH Past Medical History Autoimmune Disease: No Anxiety: No Depression: No Heart Rhythm Problems: No Cancer: No Cardiovascular Problems: Yes (HTN DURING ) High Cholesterol: No Chemotherapy: No Chest Pain: No Congestive Heart Failure: No Diabetes: No (GESTATIONAL DIABETES) Patient Takes Glucophage: No Diminished Hearing: Yes (CHITIMACHA) Endocrine: Yes Genitourinary: No Hypertension: Yes Immune Disorder: No Musculoskeletal: No Neurologic: No Psychiatric: No Reproductive: No Respiratory: No Immunizations Current: Yes Radiation Therapy: No Thyroid Disease: No Tetanus Vaccination: < 5 Years Influenza Vaccination: Yes ?: Not LMP: UNK : 3 Para: 4 Past Surgical History Abdominal Surgery: No Cardiac Surgery: No Section: Yes Ear Surgery: No Endocrine Surgery: No Eye Surgery: No Genitourinary Surgery: No Gynecologic Surgery: Yes (c section) Oral Surgery: No Thoracic Surgery: No Other Surgery: Yes Social History Alcohol Use: No Tobacco Use: Yes (1PPD) Substance Use: No Allergies-Medications (Allergen,Severity, Reaction): Coded Allergies: No Known Allergies (Unverified Adverse Reaction, Unknown, 04/26/18) Reported Meds & Prescriptions Reported Meds & Active Scripts Active No Active Prescriptions or Reported Medications Review of Systems General / Constitutional: No: Fever Eyes: No: Visual changes HENT: No: Headaches Cardiovascular: No: Chest Pain or Discomfort Respiratory: No: Shortness of Breath Gastrointestinal: No: Abdominal Pain Genitourinary: No: Dysuria Musculoskeletal: No: Pain Skin: No Rash Neurologic: No: Weakness Psychiatric: No: Depression Endocrine: No: Polydipsia Hematologic/Lymphatic: No: Easy Bruising Physical Exam Narrative GENERAL: Well-nourished, well-developed patient. SKIN: Focused skin assessment warm/dry. HEAD: Normocephalic. EYES: No scleral icterus. No injection or drainage. NECK: Supple, trachea midline. No JVD or lymphadenopathy. CARDIOVASCULAR: Regular rate and rhythm without murmurs, gallops, or rubs. RESPIRATORY: Breath sounds equal bilaterally. No accessory muscle use. GASTROINTESTINAL: Abdomen soft, non-tender, nondistended. MUSCULOSKELETAL: No cyanosis, or edema. BACK: Nontender without obvious deformity. No CVA tenderness. Patient has an area of redness swelling tenderness or axial area and a small open lesion on the right axial area. Minimal drainage noted. Data Data Last Documented VS Vital Signs Date Time Temp Pulse Resp B/P (MAP) Pulse Ox O2 Delivery O2 Flow Rate FiO2 04/26/18 19:37 99.3 83 16 202/108 (139) 99 Orders Orders Clindamycin (Cleocin) (04/26/18 20:15) Sulfamet-Trimeth Ds 800-160 Mg (Bactrim (04/26/18 20:15) MDM Medical Decision Making Medical Screen Exam Complete: Yes Emergency Medical Condition: Yes Differential Diagnosis Differential diagnosis including folliculitis, carbuncle, abscess. Narrative Course 37 years old female with infected lesions or axilla. Clindamycin 300 mg p.o. given. Bactrim DS 1 tablet p.o. given. Diagnosis Primary Impression: Infected lesion of skin Patient Instructions: General Instructions Additional Instructions: Clindamycin and Bactrim DS as directed. Wound care daily. Moist compress to the axilla. Follow-up with personal physician. Return if increasing redness swelling. Med/Other Pt SpecificInfo: Prescription(s) given Scripts Ibuprofen (Ibuprofen) 600 Mg Tab 600 MG PO TID for Pain, #30 TAB 0 Refills Prov: Ashvin Toussaint MD 04/26/18 Sulfamethoxazole-Trimethoprim (Bactrim DS) 800-160 Mg Tab 1 TAB PO BID for Infection, #20 TAB 0 Refills Prov: Ashvin Toussaint MD 04/26/18 Clindamycin (Clindamycin) 150 Mg Cap 300 MG PO QID for Infection, #80 CAP 0 Refills Prov: Ashvin Toussaint MD 04/26/18 Disposition: 01 DISCHARGE HOME Condition: Stable Ashvin Toussaint MD Apr 26, 2018 20:14
[2018-04-26] MEDS ORDERED: CLINDAMYCIN 150 MG CAP PO ONE (20:15)
[2018-04-26] MEDS ORDERED: SULFAMETHOXAZOLE-TRIMETHOPRIM DS 800-160 MG TAB PO ONE (20:15)
== END 2018-04-26 20:35 | disposition home or self-care (01) ==
LOC: NEPD 19:09
DX: L08.9 Local infection of the skin and subcutaneous tissue, unspecified (principal); F17.200 Nicotine dependence, unspecified, uncomplicated
CPT/HCPCS: 99283